=== PATIENT | female | born 1945 | race Caucasian/White ===

== ENCOUNTER 2019-07-16 13:26 | Outpatient (CLI) | payer MEDICARE, OTHER, SELFPAY ==
--- NOTE | 2019-07-16 13:30 | USCV_ITS ---
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
== END 2019-07-16 13:27 | disposition home or self-care (01) ==
LOC: RAD 13:35
PROVIDERS: Family Provider Physician Assistant Medical; PCP Physician Assistant Medical; Visit Provider Surgery Surgical Oncology
DX: I73.9 Peripheral vascular disease, unspecified (principal)
CPT/HCPCS: 93922

== ENCOUNTER 2020-07-06 16:09 | Inpatient (IN) | payer MEDICARE, OTHER, SELFPAY ==
--- NOTE | 2020-07-06 16:13 | XRR_ITS ---
PROCEDURE INFORMATION: Exam: XR Chest, 1 View Exam date and time: 07/06/2020 4:14 PM Age: 74 years old Clinical indication: Shortness of breath; Additional info: SOB TECHNIQUE: Imaging protocol: XR of the chest Views: 1 view. COMPARISON: CR Chest 1 view [id number] 04/24/2018 6:16 AM FINDINGS: Lungs: Parenchymal densities seen in the right upper lobe consistent with pneumonia. These findings are new since prior examination. Pleural spaces: Unremarkable. No pleural effusion. No pneumothorax. Heart/Mediastinum: Unremarkable. No cardiomegaly. Bones/joints: Unremarkable. XR/XR chest 1V portable [id number] IMPRESSION: Right upper lobe pneumonia.
--- NOTE | 2020-07-06 16:14 | W.ED.FALL ---
HPI - Fall General: Chief Complaint: Fall Stated Complaint: FALL OUT OF BED Time Seen by Provider: 07/06/20 16:10 Source: patient and EMS Mode of arrival: EMS Limitations: no limitations History of Present Illness: HPI Narrative: 74-year-old female states she fell out of bed today roughly 1 to 2 hours ago. She states she is just can of slipped out of bed and hit her back while she fell. She complains of back pain along with some neck pain. She denies any pain elsewhere. She states that over the last week she has had a slight cough as well. She had a history of pleural effusions and had to have it drained recently. She denies any fever. She is not hypoxic here. Associated symptoms-after fall: Reports neck pain; Denies abdominal pain, chest pain or headache(s) Review of Systems Const: Denies: fever(s), chills, body aches or change in appetite Eyes: Denies: blurry vision or eye discomfort ENMT: Denies: throat pain or dental pain Card: Denies: chest pain Resp: Reports: productive cough; Denies: dyspnea GI: Denies: abdominal pain, nausea, vomiting or diarrhea : Denies: dysuria Musc: Reports: neck pain and back pain Skin/Breast: Denies: rash Neuro: Denies: headache(s) Psych: Denies: depression Moe/Lymph: Denies: easy bruising All/Imm: Denies: urticaria PFS ED PFSH: Medical History (Updated 07/06/20 @ 17:12 by Tona Swift MD) Diastolic heart failure HTN (hypertension) Social History Smoking and tobacco status: never smoked Physical Exam Const: COMMON NORMALS: no acute distress, patient oriented x3 and healthy appearing HENMT: COMMON NORMALS: normocephalic and atraumatic HEAD & SCALP: normocephalic and atraumatic Eye: COMMON NORMALS: Equal, round and reactive pupils present and EOMs intact bilaterally PUPIL: Yes Equal, round and reactive pupils present Neck/C-Spine: COMMON NORMALS: supple OTHER: in c collar neck tenderness Chest: COMMONS NORMALS: normal inspection of the chest and normal palpation of entire chest wall Resp: COMMON NORMALS: normal respiratory effort, No retractions and No use of accessory muscles AUSCULTATION: rales on the right Cardio: COMMON NORMALS: regular rate, regular rhythm and No murmurs present (Cardio) RATE: regular rate RHYTHM: regular rhythm GI: COMMON NORMALS: Normal to inspection, nondistended, normoactive bowel sounds present, Soft to palpation, non-tender and no masses PALPATION: Yes Soft to palpation Back/Pelvis: OTHER: tenderness along spine with no sep off Extremity: COMMON NORMALS: normal to inspection and full ROM Neuro: COMMON NORMALS: patient oriented x3, moves all extremities and no focal motor deficits Psych: COMMON NORMALS: mental status grossly normal, Normal thought process present and cooperative THOUGHT PROCESS: Normal thought process present Skin: COMMON NORMALS: no rashes or lesions noted and no wounds GENERAL SKIN EXAM: no rashes or lesions noted Course Vital Signs: Vital signs: Vital Signs Temperature 99.8 F H 07/06/20 16:18 Pulse Rate 106 H 07/06/20 17:20 Respiratory Rate 23 H 07/06/20 17:20 Blood Pressure 105/45 07/06/20 17:20 Pulse Oximetry 94 07/06/20 17:20 MDM - Fall MDM Narrative: Medical decision making narrative: Karol presents here with a fall some back pain from her fall. And imaging of her back and neck are all normal. Patient's x-ray of her chest shows right upper lobe pneumonia. Patient does have a fever here and has some slight hypoxia. She has no signs of sepsis. I spoke to the hospitalist and will admit. Patient started on IV antibiotics in the ER. Lab Data: Labs: Lab Results 07/06/20 07/06/20 Range/Units 16:45 16:45 WBC 18.1 H (4.0-10.0) 10^3/ uL RBC 3.97 L (4.1-5.3) 10^6/u L Hgb 13.8 (11.5-15.3) g/dL Hct 40.2 (37.0-47.0) % MCV 101.3 H (81-99) fL MCH 34.8 H (28.0-34.0) pg MCHC 34.3 (30.0-36.0) g/dL RDW 15.6 H (12.1-15.1) % Plt Count 119 L (130-400) 10^3/c mm MPV 12.5 H (7.4-10.4) fL Neut % (Auto) 89.8 % Lymph % (Auto) 4.3 % [place] % (Auto) 4.7 % Eos % (Auto) 0.1 % Baso % (Auto) 0.3 % Neut # (Auto) 16.27 H (1.8-7.7) 10^3/u L Lymph # (Auto) 0.8 (0.8-4.8) 10^3/u L [place] # (Auto) 0.9 (0.2-0.9) 10^3/u L Eos # (Auto) 0.0 (0.0-0.8) 10^3/u L Baso # (Auto) 0.1 (0.0-0.1) 10^3/u L Nucleated RBC % (a uto) 0 % Nucleated RBCs # 0.0 /100WBC Sodium 132 L (136-145) mmol/L Potassium 2.6 L* (3.5-5.1) mmol/L Chloride 91 L (98-107) mmol/L Carbon Dioxide 28 (22-29) mmol/L Anion Gap 15.6 (5-19) BUN 17 (8-23) mg/dL Creatinine 1.0 H (0.5-0.9) mg/dL GFR Calculation Not Reportable Glucose 172 H (65-115) mg/dL Calculated Osmolal ity 280 L (285-295) mOsm/k g Calcium 8.9 (8.5-10.5) mg/dL Total Bilirubin 4.7 H (0.15-1.2) mg/dL AST 71 H (0-32) U/L ALT 22 (0-33) U/L Alkaline Phosphata se 204 H (35-105) IU/L Total Protein 9.4 H (6.6-8.7) g/dL Albumin 2.7 L (3.5-5.2) g/dL Globulin 6.7 H (1.3-4.6) g/dL Imaging Data^: CXR: Attestation: I personally reviewed and interpreted this imaging study as follows: My impression: Right upper lobe pneumonia CT Head: Attestation: I personally reviewed and interpreted this imaging study as follows: Radiologist's impression: [address] [place] [address] CT Scan Report Signed Patient: Karol Hickey Unit #: [id number] : 1945 Age/Sex: 74 / F ADM Date: 07/06/20 Loc: ER Room/Bed: Attending Dr: Ordering Provider/Ordering MD: Tona Swift MD Date of Service: 07/06/20 Procedure(s): CT head wo con* [id number] Accession Number(s): [id number] Report Number: [id number] PROCEDURE INFORMATION: Exam: CT Head Without Contrast Exam date and time: 07/06/2020 4:52 PM Age: 74 years old Clinical indication: Injury or trauma; Fall; Blunt trauma (contusions or hematomas); Without loss of consciousness; Patient HX: Fell out of bed C/O pain all over TECHNIQUE: Imaging protocol: Computed tomography of the head without contrast. Total images: 204 Radiation optimization: All CT scans at this facility use at least one of these dose optimization techniques: automated exposure control; mA and/or kV adjustment per patient size (includes targeted exams where dose is matched to clinical indication); or iterative reconstruction. COMPARISON: CT head wo con* [id number] 04/19/2018 5:52 PM RADIATION DOSE METRICS: Total DLP (mGy-cm): 884.94 FINDINGS: Brain: No evidence of active or acute intracranial pathologic process, hemorrhage, or trauma. Advanced small vessel ischemic disease with senile periventricular leukomalacia. No evidence for cerebral edema. No mass effect. No midline shift. Atrophic changes not inconsistent with the patient's chronological age. Cerebral ventricles: No ventriculomegaly. Bones/joints: Unremarkable. No acute fracture. Paranasal sinuses: Visualized sinuses are unremarkable. No fluid levels. Mastoid air cells: Visualized mastoid air cells are well aerated. Soft tissues: Unremarkable. CT/CT head wo con* [id number] IMPRESSION: No evidence of active or acute intracranial pathologic process, hemorrhage, or trauma. ct lumbar: Attestation: I personally reviewed and interpreted this imaging study as follows: Radiologist's impression: [facility] [place] [address] CT Scan Report Signed Patient: Karol Hickey Unit #: [id number] : 1945 Age/Sex: 74 / F ADM Date: 07/06/20 Loc: ER Room/Bed: Attending Dr: Ordering Provider/Ordering MD: Tona Swift MD Date of Service: 07/06/20 Procedure(s): CT lumbar spine wo con* [id number] Accession Number(s): [id number] Report Number: [id number] PROCEDURE INFORMATION: Exam: CT Lumbar Spine Without Contrast Exam date and time: 07/06/2020 4:52 PM Age: 74 years old Clinical indication: Injury or trauma; Fall; Blunt trauma (contusions or hematomas); Patient HX: Fell out of bed C/O pain all over TECHNIQUE: Imaging protocol: Computed tomography images of the lumbar spine without contrast. Radiation optimization: All CT scans at this facility use at least one of these dose optimization techniques: automated exposure control; mA and/or kV adjustment per patient size (includes targeted exams where dose is matched to clinical indication); or iterative reconstruction. COMPARISON: No relevant prior studies available. 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 Vertebrae: Moderate to severe multilevel spine degenerative changes including degenerative disc disease, spondylosis and facet degenerative changes. Discs/Spinal canal/Neural foramina: Multilevel severe central spinal stenosis. Liver: Prominent cirrhosis noted on CT thoracic spine today. Vasculature: Calcification of the abdominal aorta and/or iliac arteries consistent with atherosclerotic vessel disease. Soft tissues: Left total hip replacement with metallic artifact partially obscuring the pelvic anatomy. CT/CT lumbar spine wo con* [id number] IMPRESSION: 1. Prominent cirrhosis noted on CT thoracic spine today. 2. 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 3. Multilevel severe central spinal stenosis. 4.No acute spine findings. ct t spine: Radiologist's impression: [address] [address] [address] Scan Report Signed Patient: Karol Hickey Unit #: [id number] : 1945 Age/Sex: 74 / F ADM Date: 07/06/20 Loc: ER Room/Bed: Attending Dr: Ordering Provider/Ordering MD: Tona Swift MD Date of Service: 07/06/20 Procedure(s): CT thoracic spin wo con* [id number] Accession Number(s): [id number] Report Number: [id number] PROCEDURE INFORMATION: Exam: CT Thoracic Spine Without Contrast Exam date and time: 07/06/2020 4:52 PM Age: 74 years old Clinical indication: Injury or trauma; Fall; Blunt trauma (contusions or hematomas); Patient HX: Fell out of bed C/O pain all over TECHNIQUE: Imaging protocol: Computed tomography images of the thoracic spine without contrast. Radiation optimization: All CT scans at this facility use at least one of these dose optimization techniques: automated exposure control; mA and/or kV adjustment per patient size (includes targeted exams where dose is matched to clinical indication); or iterative reconstruction. COMPARISON: No relevant prior studies available. RADIATION DOSE METRICS: Total DLP (mGy-cm): 1748.88 FINDINGS: Vertebrae: Moderate thoracic spondylosis. Discs/Spinal canal/Neural foramina: No significant disc protrusion. No severe spinal canal stenosis. No significant neural foraminal narrowing. Soft tissues: Unremarkable. Lungs: Moderate to severe right upper lobe and right lower lobe pneumonia. Pleural spaces: Small right pleural fluid collection. Heart: Severe calcified coronary artery disease. Severe calcification in the mitral valve and/or mitral valve annulus. Mild aortic valve calcification. CT/CT thoracic spin wo con* [id number] IMPRESSION: 1. Moderate to severe right upper lobe and right lower lobe pneumonia. 2. No acute spine findings. ct c spine: Radiologist's impression: [address] [address] [address] Scan Report Signed Patient: Karol Hickey Unit #: [id number] : 1945 Age/Sex: 74 / F ADM Date: 07/06/20 Loc: ER Room/Bed: Attending Dr: Ordering Provider/Ordering MD: Tona Swift MD Date of Service: 07/06/20 Procedure(s): CT cervical spin wo con* [id number] Accession Number(s): [id number] Report Number: [id number] PROCEDURE INFORMATION: Exam: CT Cervical Spine Without Contrast Exam date and time: 07/06/2020 4:52 PM Age: 74 years old Clinical indication: Injury or trauma; Fall; Blunt trauma; Patient HX: Fell out of bed C/O pain all over TECHNIQUE: Imaging protocol: Computed tomography images of the cervical spine without contrast. Total images: 270 Radiation optimization: All CT scans at this facility use at least one of these dose optimization techniques: automated exposure control; mA and/or kV adjustment per patient size (includes targeted exams where dose is matched to clinical indication); or iterative reconstruction. COMPARISON: No relevant prior studies available. RADIATION DOSE METRICS: Total DLP (mGy-cm): 587.91 FINDINGS: Bones/joints: No acute fracture. Increase in the cervical lordosis. Osteopenia/osteoporosis. Degenerative disease with spondylosis deformans. Mild facet arthrosis. Degenerative disease of the joints of [place], left greater right C5/C6. Failure segmentation/hemivertebra C6/C7. Discs/Spinal canal/Neural foramina: Degenerative disc disease of moderate severity C5/C6. Central mild focal annular disc bulge C3/C4. Left paramedian to left lateral focal annular disc bulge osteophyte complex C5/C6 with left neural foraminal stenosis. Left neural foraminal stenosis C6/C7 Lungs: Lung apices are unremarkable for age. Soft tissues: Unremarkable for age. CT/CT cervical spin wo con* [id number] IMPRESSION: No acute findings. 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
[2020-07-06 16:18] VITALS: BP 135/69; PULSE 98; RESP 25; TEMP 37.7; O2SAT 91; BMI 29.0
[2020-07-06 17:08] LABS: Basophils # 0.1 10^3/uL (0.0-0.1); Basophils % 0.3 %; Eosinophils % 0.1 %; Hematocrit 40.2 % (37.0-47.0); Hemoglobin 13.8 g/dL (11.5-15.3); Lymphocytes # 0.8 10^3/uL (0.8-4.8); Lymphocytes % 4.3 %; Mean Corpuscular HGB Conc 34.3 g/dL (30.0-36.0); Mean Corpuscular Hemoglobin 34.8 pg (28.0-34.0); Mean Corpuscular Volume 101.3 fL (81-99); Mean Platelet Volume 12.5 fL (7.4-10.4); Monocytes # 0.9 10^3/uL (0.2-0.9); Monocytes % 4.7 %; Neutrophils # 16.27 10^3/uL (1.8-7.7); Neutrophils % 89.8 %; Nucleated Red Blood Cells % 0 %; Platelet Count 119 10^3/cmm (130-400); Red Blood Count 3.97 10^6/uL (4.1-5.3); Red Cell Distribution Width 15.6 % (12.1-15.1); White Blood Count 18.1 10^3/uL (4.0-10.0)
[2020-07-06 17:20] VITALS: BP 105/45; PULSE 106; RESP 23; O2SAT 94
[2020-07-06 17:25] LABS: Alanine Aminotransferase 22 U/L (0-33); Albumin Level 2.7 g/dL (3.5-5.2); Alkaline Phosphatase 204 IU/L (35-105); Anion Gap 15.6 (5-19); Aspartate Amino Transferase 71 U/L (0-32); Blood Urea Nitrogen 17 mg/dL (8-23); Calcium 8.9 mg/dL (8.5-10.5); Carbon Dioxide 28 mmol/L (22-29); Chloride 91 mmol/L (98-107); Globulin 6.7 g/dL (1.3-4.6); Glucose 172 mg/dL (65-115); Osmolality Calculated 280 mOsm/kg (285-295); Sodium 132 mmol/L (136-145); Total Bilirubin 4.7 mg/dL (0.15-1.2); Total Protein 9.4 g/dL (6.6-8.7)
[2020-07-06 17:42] LABS: Potassium 2.6 mmol/L (3.5-5.1)
--- NOTE | 2020-07-06 17:52 | PC.PHAR ---
pt states she takes her meds regularly. pt has pill bottles at bedside. pill bottles date back to 2019 and patient states she has not taken her meds today. Patient is also not taking Magnesium and B-12.
[2020-07-06] MEDS: sodium chloride 0.9% 1,000 ML 999 ML IV (18:09)
[2020-07-06] MEDS: acetaminophen 325 mg Tablet 650 MG PO (18:09)
--- NOTE | 2020-07-06 18:13 | PM.HP ---
Providers/Chief Complaint Primary Care Provider: Dmitry Hogan Chief Complaint: FALL OUT OF BED History of Present Illness Karol Hickey is a 74 year old female with past medical history of liver cirrhosis, congestive heart failure, hypertension who was brought by her family to emergency room because she fell out of bed earlier today. The fall was mechanical in nature. The patient denies any significant pain. Imaging studies were negative for any fractures or intracranial bleeding. However the patient was found to be hypoxic. She quickly improved with small amount of supplemental oxygen. Currently on 2 L. The patient also has fever. Chest x-ray and CT revealed right-sided pneumonia. The family reports that the patient has been coughing lately. They also report generalized weakness and tiredness, decreased appetite. No reported shortness of breath. No chest pain or palpitations. No nausea or vomiting. No diarrhea. About a week ago the patient underwent right-sided thoracentesis in [place]. About a liter of fluid was removed. They do not know the results of the tests yet. No history of cancer. They do not know the nature of liver cirrhosis. Review of Systems General: Reports: 10 or more systems reviewed and unremarkable except in HPI and below Medications/Allergies Home Medications Medication Instructions Recorded Confirmed Last Taken Type furosemide 40 mg tablet 40 mg PO DAILY PRN 10/31/19 07/06/20 Unknown History metformin 500 mg tablet,extended 500 mg PO DAILY tab 10/31/19 07/06/20 Unknown History release 24 hr nadolol 20 mg tablet 10 mg PO DAILY tab 10/31/19 07/06/20 Unknown History potassium chloride 20 mEq 20 meq PO DAILY 10/31/19 07/06/20 Unknown History tablet,extended release sulfasalazine 500 mg tablet 0.5 gm PO BID tab 10/31/19 07/06/20 Unknown History irbesartan 150 mg tablet 150 mg PO DAILY #90 tab 11/05/19 07/06/20 Unknown Rx Allergies Allergy/AdvReac Type Severity Reaction Status Date / Time No Known Allergies Allergy Unverified 10/31/19 10:43 PFSH Acute PFSH: Medical History (Updated 07/06/20 @ 17:12 by Tona Swift MD) Diastolic heart failure HTN (hypertension) Social History Smoking and tobacco status: never smoked Vitals/I&O/Wt Last Vital Signs Temp 99.8 F H 07/06/20 16:18 Pulse 106 H 07/06/20 17:20 Resp 23 H 07/06/20 17:20 BP 105/45 07/06/20 17:20 Pulse Ox 94 07/06/20 17:20 Weight last 48 hrs Weight 83.915 kg Physical Exam Narrative: EXAM NARRATIVE: The patient is hard of hearing. No acute distress but appears very weak and tired. Skin is warm and dry. Dry mucous membranes Neck supple. No JVD Lungs right-sided crackles are prominent. No wheezes. No respiratory distress with supplemental oxygen at rest. Heart S1, S2, regular Abdomen soft, distended, nontender, bowel sounds are present. Extremities. Trace edema. No cyanosis or calf tenderness bilaterally Neuro exam. Nonfocal. Generalized muscle weakness is present. Eyes PERRL, extraocular muscles are intact. No dysarthria. Data : 07/06/20 16:45 07/06/20 16:45 Other Labs: Laboratory Results WBC 18.1 10^3/uL (4.0-10.0) H 07/06/20 16:45 RBC 3.97 10^6/uL (4.1-5.3) L 07/06/20 16:45 Hgb 13.8 g/dL (11.5-15.3) 07/06/20 16:45 Hct 40.2 % (37.0-47.0) 07/06/20 16:45 MCV 101.3 fL (81-99) H 07/06/20 16:45 MCH 34.8 pg (28.0-34.0) H 07/06/20 16:45 MCHC 34.3 g/dL (30.0-36.0) 07/06/20 16:45 RDW 15.6 % (12.1-15.1) H 07/06/20 16:45 Plt Count 119 10^3/cmm (130-400) L 07/06/20 16:45 MPV 12.5 fL (7.4-10.4) H 07/06/20 16:45 Neut % (Auto) 89.8 % 07/06/20 16:45 Lymph % (Auto) 4.3 % 07/06/20 16:45 [place] % (Auto) 4.7 % 07/06/20 16:45 Eos % (Auto) 0.1 % 07/06/20 16:45 Baso % (Auto) 0.3 % 07/06/20 16:45 Neut # (Auto) 16.27 10^3/uL (1.8-7.7) H 07/06/20 16:45 Lymph # (Auto) 0.8 10^3/uL (0.8-4.8) 07/06/20 16:45 [place] # (Auto) 0.9 10^3/uL (0.2-0.9) 07/06/20 16:45 Eos # (Auto) 0.0 10^3/uL (0.0-0.8) 07/06/20 16:45 Baso # (Auto) 0.1 10^3/uL (0.0-0.1) 07/06/20 16:45 Nucleated RBC % (auto) 0 % 07/06/20 16:45 Nucleated RBCs # 0.0 /100WBC 07/06/20 16:45 Sodium 132 mmol/L (136-145) L 07/06/20 16:45 Potassium 2.6 mmol/L (3.5-5.1) L* 07/06/20 16:45 Chloride 91 mmol/L (98-107) L 07/06/20 16:45 Carbon Dioxide 28 mmol/L (22-29) 07/06/20 16:45 Anion Gap 15.6 (5-19) 07/06/20 16:45 BUN 17 mg/dL (8-23) 07/06/20 16:45 Creatinine 1.0 mg/dL (0.5-0.9) H 07/06/20 16:45 GFR Calculation Not Reportable 07/06/20 16:45 Glucose 172 mg/dL (65-115) H 07/06/20 16:45 Calculated Osmolality 280 mOsm/kg (285-295) L 07/06/20 16:45 Calcium 8.9 mg/dL (8.5-10.5) 07/06/20 16:45 Total Bilirubin 4.7 mg/dL (0.15-1.2) H 07/06/20 16:45 AST 71 U/L (0-32) H 07/06/20 16:45 ALT 22 U/L (0-33) 07/06/20 16:45 Alkaline Phosphatase 204 IU/L (35-105) H 07/06/20 16:45 Total Protein 9.4 g/dL (6.6-8.7) H 07/06/20 16:45 Albumin 2.7 g/dL (3.5-5.2) L 07/06/20 16:45 Globulin 6.7 g/dL (1.3-4.6) H 07/06/20 16:[address] 07/06/20 16:13 IMPRESSION: No acute findings. Radiation Dose CTDIVOL = (mGy): DLP = 587.91 (mGy-cm) Chest X-Ray 07/06/20 16:13 IMPRESSION: Right upper lobe pneumonia. Head CT 07/06/20 16:13 IMPRESSION: No evidence of active or acute intracranial pathologic process, hemorrhage, or trauma. Radiation Dose CTDIVOL = (mGy): DLP = 884.94 (mGy-cm) Lumbar Spine CT 07/06/20 16:13 IMPRESSION: 1. Prominent cirrhosis noted on CT thoracic spine today. 2. 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 3. Multilevel severe central spinal stenosis. 4.No acute spine findings. Radiation Dose CTDIVOL = (mGy): DLP = 1717.6 (mGy-cm) Thoracic Spine CT 07/06/20 16:13 IMPRESSION: 1. Moderate to severe right upper lobe and right lower lobe pneumonia. 2. No acute spine findings. Radiation Dose CTDIVOL = (mGy): DLP = 1748.88 (mGy-cm) Micro: Microbiology 07/06/20 17:45 Blood Culture - Preliminary Blood SPECIMEN COLLECTED A&P Additional A&P Information 74-year-old female with past medical history of cirrhosis, CHF diastolic, hypertension, pleural effusion which was drained a week ago in [place] brought to emergency room after mechanical fall from her bed. She is found to have right-sided upper and lower lobe pneumonia. Severe sepsis and probably septic shock. When I entered the room her blood pressure was at mid 80s. The nursing staff is checking her vital signs again. Today suspect that the blood pressure device was connected incorrectly. In any case they will recheck and report. If the blood pressure is low again the patient will go to ICU. I am ordering lactic acid level and 1 L bolus of LR. We might need to use pressors if blood pressure remains low. I would be careful with IV fluids due to history of CHF. Acute hypoxic respiratory failure secondary to pneumonia. Improved with supplemental oxygen. We will continue oxygen and close monitoring. Right-sided pneumonia. Started on Rocephin which we will continue. We will add doxycycline. Blood cultures and sputum culture. MRSA screen. Will check procalcitonin level. Will adjust antibiotics depending on progress and culture results. Evidence of dehydration probably due to decreased oral intake. Associated mild acute kidney injury. She is also on furosemide at home. We will hold her blood pressure medications and furosemide. We will hydrate her gently. We will monitor for fluid overload. Hypokalemia. Will replace and recheck in the morning. I will also check her magnesium level. Recent pleural effusion. We will request her records from [place]. If there is worsening hypoxia we will repeat her chest x-ray. We might not need CT if it was done recently in [place]. Elevated total protein. We will recheck her CMP in couple of days. Additional testing might be necessary if persists. DVT prophylaxis. Lovenox. Diabetes. Insulin sliding scale. CODE STATUS. She wants to be full code. The plan of care was discussed with the patient and her family. They verbalized understanding and agreement Attestations Medical Necessity Statement*: The patient is being admitted to hospital with above listed problems some of them very severe requiring close monitoring in hospital settings, need for IV fluids and IV antibiotics. 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
[2020-07-06 18:21] VITALS: BP 109/49; PULSE 103; RESP 29; O2SAT 92
[2020-07-06 18:36] LABS: Magnesium 1.4 mg/dL (1.7-2.3)
[2020-07-06 18:40] LABS: Lactate (Lactic Acid level) 3.3 mmol/L (0.5-2.2)
[2020-07-06] MEDS: cefTRIAXone 1,000 MG in sodium chloride 0.9% (plus) 50 ML 100 MG IV (18:43)
[2020-07-06] MEDS: azithromycin 500 MG in sodium chloride 0.9% 250 ML 250 MG IV (19:07)
[2020-07-06] MEDS: potassium chloride ER 20 mEq Tablet 40 MEQ PO (19:09)
[2020-07-06 20:00] VITALS: BP 91/51; PULSE 72; RESP 19; TEMP 36.8; O2SAT 98
[2020-07-06 20:33] LABS: Procalcitonin 0.67 ng/mL (0-0.5)
[2020-07-06] MEDS: lactated ringers 1,000 ML 250 ML IV (20:40)
[2020-07-06] MEDS: sodium chlor 0.9% + KCl 20 mEq 20 MEQ/1,000 ML BAG 50 MEQ IV (20:42)
[2020-07-06] MEDS: enoxaparin 40 mg/0.4 mL Syringe SUBCUT (20:45)
[2020-07-06] MEDS: famotidine 20 mg/2 mL INJ IVP (20:45)
[2020-07-06 20:50] LABS: Glucose Point of Care 225 mg/dL (70-110)
[2020-07-07] VITALS (9 sets, daily range): BP systolic 94–123; BP diastolic 54–67; PULSE 65–77; RESP 17–20; TEMP 36.6–37.3; O2SAT 95–100
[2020-07-07 05:18] LABS: Basophils % 0.3 %; Eosinophils % 0.1 %; Hemoglobin 10.8 g/dL (11.5-15.3); Lymphocytes # 1.4 10^3/uL (0.8-4.8); Lymphocytes % 9.3 %; Mean Corpuscular HGB Conc 32.7 g/dL (30.0-36.0); Mean Corpuscular Hemoglobin 33.9 pg (28.0-34.0); Mean Corpuscular Volume 103.4 fL (81-99); Mean Platelet Volume 12.2 fL (7.4-10.4); Monocytes # 0.9 10^3/uL (0.2-0.9); Monocytes % 5.9 %; Neutrophils # 12.26 10^3/uL (1.8-7.7); Neutrophils % 83.5 %; Nucleated Red Blood Cells % 0 %; Platelet Count 69 10^3/cmm (130-400); Red Blood Count 3.19 10^6/uL (4.1-5.3); Red Cell Distribution Width 15.6 % (12.1-15.1); White Blood Count 14.7 10^3/uL (4.0-10.0)
[2020-07-07 05:31] LABS: Estmated Average Glucose 85; Hemoglobin A1C 4.6 % (4.0-6.0)
[2020-07-07] MEDS: famotidine 20 mg/2 mL INJ IVP (05:31)
[2020-07-07 05:41] LABS: NT Pro B Type Natriuretic Pept 942 pg/mL (0-450); Procalcitonin 4.64 ng/mL (0-0.5)
[2020-07-07 05:52] LABS: Anion Gap 10.3 (5-19); Blood Urea Nitrogen 23 mg/dL (8-23); Calcium 7.8 mg/dL (8.5-10.5); Carbon Dioxide 29 mmol/L (22-29); Chloride 99 mmol/L (98-107); Glucose 120 mg/dL (65-115); Magnesium 1.4 mg/dL (1.7-2.3); Osmolality Calculated 285 mOsm/kg (285-295); Phosphorus 2.8 mg/dL (2.5-4.5); Potassium 3.3 mmol/L (3.5-5.1); Sodium 135 mmol/L (136-145)
[2020-07-07 06:00] LABS: Add Urine Microscopic? YES; Bilirubin Urine 2+ (Negative); Blood Urine 2+ (Negative); Glucose Urine UA Norm (Normal); Ketones Urine 1+ (Negative); Leukocyte Esterase Urine 1+ (Negative); Nitrate Urine Negative (Negative); Protein Urine 1+ (Negative); Specific Gravity, Urine 1.025 (1.005-1.030); Urine Appearance SL Hazy (CLEAR); Urine Color Dark Yellow (Yellow); Urobilinogen Urine 4 mg/dL (Negative); pH Urine 5 (5-7)
[2020-07-07 06:01] LABS: Add Urine Culture? No; Bacteria Urine 1+ /hpf; Fine Granular Casts Urine 0-4 /lpf; RBC Urine 0-4 /hpf (0-2); WBC Urine 0-4 /hpf (0-5)
--- NOTE | 2020-07-07 06:24 | PC.NURSE ---
pt unable to void through the night, bladder scan showed appx. 250 ml this morning after which pt was able to void small amount of dark concentrated urine in a specimen cup, notified Dr Escamilla of low output, no new orders at this time
[2020-07-07 06:30] LABS: Glucose Point of Care 115 mg/dL (70-110)
[2020-07-07] MEDS: cefTRIAXone 1,000 MG in sodium chloride 0.9% (plus) 50 ML 100 MG IV (08:25)
[2020-07-07] MEDS: doxycycline 100 mg Tablet PO (08:25)
--- NOTE | 2020-07-07 09:43 | PC.CHAP ---
Pastoral Care Encounter/Spiritual Assessment Type of Contact [] Declined engineer chief visit [] Patient/Family/Request visit [] Outpatient visit [] Follow-up visit [] Physician referral [] Code/Alert [x] Routine visit [] Staff referral [] Actively dying [] Patient sleeping [] Family support [] [] Out of room [] Palliative care [] [] Receiving care in room [] Pre-surgical visit [] Trauma [] Long length of stay [] ICU visit [] Other: Relational/Emotional Strength [x] Patient feels connected with others/family/visitors/staff [] Distress [] Loneliness/isolation [] Abandonment Spirituality of Patient []x Person of Tiffany [] Attends Advent of their Tiffany [] Believes in Prayer [] Reads Bible or Latter Day materials [] There are Spiritual issues to be addressed Core Drilling Supervisor Interventions [x] Prayer [x] Active listening [] Non-anxious presence [] Spiritual/emotional support [] Crisis/trauma care [] Spiritual counseling [] Bereavement support [] Provided bereavement packet [] Provided Bible/devotional materials [] Provided toy/stuffed animal, coloring book to patient or family member [] Provided Communion [] Anointing/Edmond [] Salvation [x] Completed spiritual assessment [] Other: Impact on Illness or Injury [] Angry [] Fearful [] Anxious [] Often cries [] Exhaustion [] Unable to work [x] Unable to attend baptism [] Unable to walk/stand [] Unable to read [] Unable to drive [] Unable to eat/drink [] Unable to sleep [] Unable to be with family [] Patient intubated [] Other: Summary Time spent with patient 15 min
[2020-07-07] MEDS: lidocaine 1% 5 ML in potassium chloride premix 100 ML 25 ML IV (10:50)
[2020-07-07] MEDS: magnesium sulfate premix 4 GM/100 ML PREMIX IV (10:51)
--- NOTE | 2020-07-07 11:06 | CT_ITS ---
WS: [id number] CTA OF THE CHEST WITH PULMONARY EMBOLISM PROTOCOL TECHNIQUE: High-resolution contrast enhanced CTA of the chest with coronal and sagittal reformatted i mages with pulmonary embolism protocol. MIP images are also reviewed. CLINICAL INFORMATION: sob COMPARISON: CTA chest April 21, 2018 DLP: 527.[address] scans at [facility] use at least one of these dose optimization techniques: automat ed exposure control; mA and/or kV adjustment per patient size (includes targeted exams where dose is matched to clinical indication); or iterative reconstruction. FINDINGS: Proximal main pulmonary arteries are patent. Prominent central main pulmonary arteries can be seen wi th pulmonary hypertension. Small filling defect in the right lower lobe consistent pulmonary embolus. Remaining arteries appear patent. Small right pleural effusion with compressive atelectasis in right lung base. Hazy groundglass infilt rates in right upper lobe. Air bronchograms with bronchiectasis right upper lobe along the fissure. L eft lung is well aerated. Trace left pleural fluid. No mediastinal or hilar lymphadenopathy. No axill mesfin lymphadenopathy. Partially visualized cirrhotic liver with cholelithiasis. Varices in the upper abdomen partially visu alized. 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 CT/CT angio chest PE protcl [id number] IMPRESSION: 1. Small filling defect in the right lower lobe consistent with pulmonary embo minerva. 2. Proximal main pulmonary arteries are patent and enlarged. This can be seen with pulmonary arterial hypertension. 3. Small right pleural effusion with compressive atelectasis right lung base. 4. Hazy groundglass infiltrates in right upper lobe with subtotal consolidatio n along the fissure consistent with pneumonia. 5. Bronchiectasis right upper lobe. Notified Bishnu Nuñez MD at 07/07/2020 12:34 PM.
--- NOTE | 2020-07-07 11:06 | USCV_ITS ---
EdelmiraKarol Age: 74 Gender: F : 1945 Exam Date: 07/07/2020 15:14 Ordering Phys: Bishnu Nuñez MD Technologist: Karol Jacob [place] [facility] [place]: CHF BP: / HR: 74 Rhythm: Sinus Technical Quality: Technically difficult study MEASUREMENTS (Male / Female) Normal Values 2D ECHO LV Diastolic Diameter PLAX 3.1 cm 4.2 - 5.9 / 3.9 - 5.3 cm LV Systolic Diameter PLAX 1.7 cm LV Chamber Size 4.2 cm IVS Diastolic Thickness 1.2 cm 0.6 - 1.0 / 0.6 - 0.9 cm IVS Systolic Thickness 0.0 cm LVPW Diastolic Thickness 1.5 cm 0.6 - 1.0 / 0.6 - 0.9 cm LVPW Systolic Thickness 1.8 cm RV Chamber Size 2.7 cm LVOT Diameter 2.0 cm LV Ejection Fraction 2D Teich 76.6 % LV Ejection Fraction MOD 2C 78.2 % LV Ejection Fraction 2C AL 79.0 % LA Diameter 3.7 cm LA Width 4.0 cm LA Height 5.9 cm RA Width 3.5 cm RA Height 4.0 cm M-MODE LV Diastolic Diameter MM 4.6 cm 4.2 - 5.9 / 3.9 - 5.3 cm LV Systolic Diameter MM 2.2 cm LV Ejection Fraction MM Teich 84.2 % IVS Diastolic Thickness MM 1.9 cm 0.6 - 1.0 / 0.6 - 0.9 cm IVS Systolic Thickness MM 3.4 cm LVPW Diastolic Thickness MM 1.5 cm 0.6 - 1.0 / 0.6 - 0.9 cm LVPW Systolic Thickness MM 1.6 cm Aortic Annulus Diameter 4.1 cm LA Ao Ratio MM 1.0 MV E Point Septal Separation 0.1 cm DOPPLER AV Peak Velocity 319.3 cm/s LVOT Peak Velocity 146.0 cm/s AV Area Cont Eq vti 1.4 cm squared AV Area Cont Eq pk 1.4 cm squared MV Area PHT 2.0 cm squared Mitral E to A Ratio 1.3 MV E' Velocity 120.5 cm/s Mitral E to MV E' Ratio 26.2 Mitral E to LV E' Lateral Ratio 22.6 Mitral E to LV E' Septal Ratio 31.6 TR Peak Velocity 184.0 cm/s TR Peak Gradient 13.5 mmHg TV Peak E Velocity 68.0 cm/s PV Peak Velocity 47.0 cm/s RV Acceleration Time 0.1 s RV Ejection Time 0.3 s RV AcT/ET 0.3 FINDINGS Left Ventricle Normal left ventricular size. LV is hyperdynamic with LVEF of > 65%. No regional wall motion abnormalities. Normal diastolic filling pattern. Right Ventricle Grossly normal Right Atrium The right atrium is normal in size. Left Atrium The left atrium is mildly dilated Mitral Valve Severe mitral annular calcification. Chordal calcification noted. There is mild to moderate mitral stenosis with MV area of 1.9cm2 by pressure half time and gradient across the valve of 7.2mmHg. There is mild mitral regurgitation. Aortic Valve Thickened and calcified aortic valve. There is moderate aortic stenosis. By continuity equation, BRENNA is 1.28cm2 and mean gradient across the aortic valve is 24mmHg There is no aortic regurgitation. Tricuspid Valve Structurally normal tricuspid valve without significant stenosis or regurgitation. Insufficient TR jet to calculate RVSP Pulmonic Valve Grossly normal Pericardium Normal pericardium without effusion. Aorta Normal ascending aorta dimension. CONCLUSIONS LV is hyperdynamic with EF of >65% Normal diastolic function There is severe mitral annular calcification. There is mild to moderate mitral stenosis with MV area of 1.9cm2 and gradient across the mitral valve of 7.2mmHg. There is mild mitral regurgitation Moderate aortic stenosis is noted Compared to prior echocardiogram from 04/19/2018, patient has mild to moderate mitral stenosis and moderate aortic stenosis. Alban Hughes MD (Electronically Signed) Final Date: 07 July 2020 20:14 S
--- NOTE | 2020-07-07 11:06 | CT_ITS ---
WS: [id number] CT ABDOMEN PELVIS TECHNIQUE: Noncontrast CT of the abdomen and pelvis with coronal and sagittal reformatted images. CLINICAL INFORMATION: liver crihosis COMPARISON: MRCP 3 [id number] DLP: 1059.[address] scans at [facility] use at least one of these dose optimization techniques: automat ed exposure control; mA and/or kV adjustment per patient size (includes targeted exams where dose is matched to clinical indication); or iterative reconstruction. FINDINGS: Hepatic cirrhosis. Cholelithiasis. Extensive varices in the upper abdomen including gastrohepatic and gastrosplenic varices. Small right pleural effusion with compressive atelectasis right lower lobe. T race left pleural fluid. Coronary calcification. No hydronephrosis in either kidney. Adrenal glands are normal. Normal GE junction. Small amount of fr ee fluid in the pelvis. Left SORAYA degrades images in the pelvis. Pelvic phleboliths. Diverticulosis. N o evidence of acute diverticulitis. No small or large bowel obstruction. Normal appendix. Tiny fat-co ntaining umbilical hernia. Normal caliber abdominal aorta. CT/CT abdomen pelvis wo con [id number] IMPRESSION: 1. Hepatic cirrhosis with varices in the upper abdomen. 2. Extensive cholelithiasis 3. Normal caliber abdominal aorta. 4. Small amount of free fluid in the pelvis. 5. Sigmoid diverticulosis. No evidence of acute diverticulitis. Some images in the pelvis are degraded due to left SORAYA. 6. No hydronephrosis in either kidney. 7. Small right pleural effusion with compressive atelectasis right lower lobe. 8. Prior hysterectomy. Notified Bishnu Nuñez MD at 07/07/2020 12:40 PM.
[2020-07-07 11:28] LABS: C Reactive Protein 39.8 mg/L (0.0-4.9)
[2020-07-07 11:36] LABS: Glucose Point of Care 198 mg/dL (70-110)
[2020-07-07] MEDS: iodixanol 320 mg/mL 100mL Btl IV (12:10)
[2020-07-07 12:11] LABS: Lactate (Lactic Acid level) 2.5 mmol/L (0.5-2.2)
[2020-07-07] MEDS: pantoprazole DR 40 mg Tablet PO ×2 (13:16→18:13)
[2020-07-07] MEDS: azithromycin 500 MG in sodium chloride 0.9% 250 ML 250 MG IV (15:21)
--- NOTE | 2020-07-07 16:34 | PC.NURSE ---
daughter at bedside requesting to know information. explained what i could from nursing standpoint. sent message to DR. leyva to contact either daughter or son to explain information to them. relayed info to daughter
[2020-07-07 16:50] LABS: Glucose Point of Care 230 mg/dL (70-110)
[2020-07-07 17:07] LABS: Partial Thromboplastin Time 48.8 SECONDS (23.9-36.7)
[2020-07-07] MEDS: heparin drip 25,000 UNIT/500 ML PREMIX 23.5 UNIT IV (17:10)
--- NOTE | 2020-07-07 17:11 | USCV_ITS ---
Karol Hickey Age: 74 Gender: F : 1945 Exam Date: 07/07/2020 17:30 Ordering Phys: Bishnu Nuñez MD Technologist: Nay Ho [place] [facility] [place]: BLE PAIN HISTORY: Lower extremity pain. PROCEDURES: Venous duplex imaging was performed in bilateral lower extremities. The following venous structures were evaluated: common femoral vein, profunda vein, proximal portion of the greater saphenous vein, superficial femoral vein, and the popliteal vein. In addition, the posterior tibial veins were evaluated. Serial compression, augmentation maneuvers, and spectral Doppler flow evaluation were performed. FINDINGS: No evidence of DVT seen in any vessel visualized at this time. CONCLUSIONS No evidence of right lower extremity DVT. No evidence of left lower extremity DVT. Guille Moyer MD (Electronically Signed) Final Date: 08 July 2020 09:50 S
--- NOTE | 2020-07-07 17:15 | P.PN_ITS ---
Subjective Subjective: Interval history: This morning patient was examined, she sitting up in bed, she is on 2 L nasal cannula, she does not have any significant complaints, no complaints of fevers, no cough, no chest pain, no palpitations, no shortness of breath, she has been staying for the last few weeks she has been feeling more weak, a bit more lightheaded, no calf pain, no calf swelling, no recent travel, known exposure to COVID-19, no known history of strokes, no no history of heart failure, no history of CAD, she does tell me that she was in [place] to see her primary care provider, she had a right pleural effusion that was drained, she tells me that has been drained 3 times in the past year or so, she does not know why she has the right pleural effusion, but roughly a liter was taken off Vitals/I&O/Wt Last Vital Signs Temp 98.6 F 07/07/20 15:09 Pulse 73 07/07/20 15:09 Resp 18 07/07/20 15:09 BP 106/59 07/07/20 15:09 Pulse Ox 96 07/07/20 15:09 07/07/20 07/07/20 07/07/20 06:59 14:59 22:59 Intake Total 1520 / 4165 360 / 360 Balance 1520 / 4165 360 / 360 Weight last 48 hrs Weight 83.915 kg Physical Exam Const: COMMON NORMALS: no acute distress and patient oriented x3 HENMT: COMMON NORMALS: normocephalic HEAD & SCALP: normocephalic Neck/C-Spine: COMMON NORMALS: no JVD Resp: COMMON NORMALS: normal respiratory effort, No retractions, No use of accessory muscles and clear to auscultation bilaterally AUSCULTATION: clear to auscultation bilaterally Cardio: COMMON NORMALS: no JVD, regular rate, regular rhythm, S1 normal heart sound present and S2 normal heart sound present RATE: regular rate RHYTHM: regular rhythm HEART SOUNDS: S1 normal heart sound present and S2 normal heart sound present GI: COMMON NORMALS: Normal to inspection, nondistended, normoactive bowel sounds present, Soft to palpation, non-tender, No hepatosplenomegaly present, no masses and no bruits PALPATION: Yes Soft to palpation and Yes No hepatosplenomegaly present Extremity: COMMON NORMALS: capillary refill normal, no clubbing, cyanosis or edema, no calf tenderness and no pedal edema Neuro: COMMON NORMALS: patient oriented x3 Psych: COMMON NORMALS: mental status grossly normal Data : 07/07/20 05:00 07/07/20 05:00 Micro: Microbiology 07/06/20 17:45 Blood Culture - Preliminary Blood 07/07/20 05:30 MRSA Culture - Final Nose 07/07/20 05:45 Legionella Urinary Antigen - Final Urine,Clean Catch 07/06/20 18:28 Blood Culture - Preliminary Blood SPECIMEN COLLECTED A&P Assessment and plan (1) Acute respiratory failure with hypoxia: -Likely secondary to right-sided pneumonia -Patient's pulmonary emboli, is a small filling defect in the right lower lobe, I I am not convinced that it is playing a significant role Plan: -Continue broad-spectrum antibiotic therapy vancomycin, Rocephin, azithromycin -I will hold off on starting her on anticoagulation, given her liver cirrhosis, chronic thrombocytopenia, gastric varices, concern for significant bleeding -Monitor respiratory status closely -Sputum cultures, blood cultures, urine bacterial antigens Status: Acute (2) Pulmonary emboli: -CT angiogram of the chest shows a small filling defect in the right lower lobe consistent with pulmonary embolism -Hold off on anticoagulation as I am not convinced that it is playing a significant role -She actually denies any shortness of breath or chest pain, but is on 2 L -Holding off on anticoagulation as she is thrombocytopenia, anemia, has gastric varices, liver cirrhosis, check INR, D-dimer, bilateral extremity ultrasounds Status: Acute (3) Pneumonia: Continue vancomycin, Rocephin, azithromycin Follow blood cultures, urine bacterial antigens, MRSA nares Status: Acute Qualifiers: Laterality: right Lung location: upper lobe of lung Pneumonia type: due to unspecified organism Qualified Code(s): J18.9 - Pneumonia, unspecified organism (4) Fall: PT OT Status: Acute Qualifiers: Encounter type: initial encounter Qualified Code(s): W19.XXXA - Unspecified fall, initial encounter (5) Diastolic heart failure: Does not clinically look fluid overloaded, has a right pleural effusion previously drained, currently has a minimal right pleural effusion Hold off on any further Lasix We will repeat echocardiogram Status: Acute Qualifiers: Heart failure chronicity: chronic Qualified Code(s): I50.32 - Chronic diastolic (congestive) heart failure (6) HTN (hypertension): Status: Acute (7) Liver cirrhosis: -Secondary to hepatitis C -CT scan of the abdomen shows hepatic cirrhosis with varices Status: Acute Additional A&P Information Elevated total protein. We will recheck her CMP in couple of days. Additional testing might be necessary if persists. DVT prophylaxis. SCDs, anticoagulation contraindicated given liver cirrhosis, thrombocytopenia, gastric varices, high risk of bleeding Diabetes. Insulin sliding scale. CODE STATUS. She wants to be full code. The plan of care was discussed with the patient and her family. They verbalized understanding and agreement Attestations Medical Necessity Statement*: Patient requires hospitalization for acute respiratory failure secondary pneumonia, right pulmonary emboli, liver cirrhosis, fall Coding Level of Care Code Acute Director Human Services for [facility] Diagnoses Acute respiratory failure with hypoxia J96.01 Pulmonary emboli I26.99 Pneumonia J18.9 Laterality: right Lung location: upper lobe of lung Pneumonia type: due to unspecified organism Fall W19.XXXA Encounter type: initial encounter Diastolic heart failure I50.32 Heart failure chronicity: chronic HTN (hypertension) I10 Liver cirrhosis K74.60
[2020-07-07 17:38] LABS: INR 1.77 (0.8-1.2)
[2020-07-07 17:40] LABS: D Dimer 3.19 ug/mIFEU (0-0.59)
[2020-07-07] MEDS: sucralfate 1 gm Tablet PO ×2 (18:13→21:58)
[2020-07-07] MEDS: FUROsemide 10 mg/mL SDV 2mL 20 MG IVP (18:14)
[2020-07-07] MEDS: vancomycin 1,000 MG in sodium chloride 0.9% 250 ML 250 MG IV (18:14)
[2020-07-07 20:46] LABS: Glucose Point of Care 241 mg/dL (70-110)
--- NOTE | 2020-07-07 20:47 | PC.NURSE ---
Patient voided and missed hat.
[2020-07-07 23:30] LABS: Partial Thromboplastin Time 49.5 SECONDS (23.9-36.7)
[2020-07-08] VITALS (8 sets, daily range): BP systolic 107–138; BP diastolic 52–70; PULSE 68–91; RESP 17–18; TEMP 36.4–37.1; O2SAT 95–98
[2020-07-08 06:11] LABS: Basophils % 0.3 %; Eosinophils # 0.1 10^3/uL (0.0-0.8); Eosinophils % 0.8 %; Hematocrit 29.7 % (37.0-47.0); Hemoglobin 10.6 g/dL (11.5-15.3); Lymphocytes # 1.1 10^3/uL (0.8-4.8); Lymphocytes % 12.4 %; Mean Corpuscular HGB Conc 35.7 g/dL (30.0-36.0); Mean Corpuscular Hemoglobin 37.1 pg (28.0-34.0); Mean Corpuscular Volume 103.8 fL (81-99); Mean Platelet Volume 12.2 fL (7.4-10.4); Monocytes # 0.7 10^3/uL (0.2-0.9); Monocytes % 7.6 %; Neutrophils # 6.83 10^3/uL (1.8-7.7); Neutrophils % 78.3 %; Nucleated Red Blood Cells % 0 %; Platelet Count 65 10^3/cmm (130-400); Red Blood Count 2.86 10^6/uL (4.1-5.3); Red Cell Distribution Width 15.1 % (12.1-15.1); White Blood Count 8.7 10^3/uL (4.0-10.0)
[2020-07-08 06:37] LABS: Magnesium 1.9 mg/dL (1.7-2.3); Phosphorus 2.3 mg/dL (2.5-4.5)
[2020-07-08 06:38] LABS: Alanine Aminotransferase 19 U/L (0-33); Alkaline Phosphatase 182 IU/L (35-105); Aspartate Amino Transferase 41 U/L (0-32); Blood Urea Nitrogen 19 mg/dL (8-23); Calcium 7.7 mg/dL (8.5-10.5); Carbon Dioxide 29 mmol/L (22-29); Chloride 100 mmol/L (98-107); Globulin 5.2 g/dL (1.3-4.6); Glucose 108 mg/dL (65-115); Osmolality Calculated 279 mOsm/kg (285-295); Sodium 133 mmol/L (136-145); Total Bilirubin 2.1 mg/dL (0.15-1.2); Total Protein 7.2 g/dL (6.6-8.7)
[2020-07-08 06:42] LABS: Glucose Point of Care 129 mg/dL (70-110)
[2020-07-08] MEDS: sucralfate 1 gm Tablet PO ×4 (06:48→22:29)
[2020-07-08] MEDS: pantoprazole DR 40 mg Tablet PO ×2 (09:20→17:59)
[2020-07-08] MEDS: cefTRIAXone 1,000 MG in sodium chloride 0.9% (plus) 50 ML 100 MG IV (09:33)
[2020-07-08] MEDS: phosphorus 250 mg Tablet PO ×2 (10:46→17:59)
[2020-07-08] MEDS: spironolactone 25 mg Tablet 100 MG PO (10:46)
[2020-07-08] MEDS: FUROsemide 40 mg Tablet PO (10:46)
[2020-07-08 10:55] LABS: Ammonia 30 umol/L (11-51)
[2020-07-08 11:18] LABS: INR 1.62 (0.8-1.2)
[2020-07-08 11:56] LABS: Glucose Point of Care 232 mg/dL (70-110)
--- NOTE | 2020-07-08 15:42 | P.PN_ITS ---
Subjective Subjective: Interval history: This morning patient was examined, she sitting up in bed, she does not require any oxygen, denies chest pain, no shortness of breath, no lightheadedness, no dizziness, no bloody black stools, no hematemesis, Vitals/I&O/Wt Last Vital Signs Temp 98.0 F 07/08/20 15:12 Pulse 91 07/08/20 15:12 Resp 18 07/08/20 15:12 BP 108/69 07/08/20 15:12 Pulse Ox 95 07/08/20 15:12 07/08/20 07/08/20 07/08/20 06:59 14:59 22:59 Intake Total 1205 / 2330 530 / 530 Output Total 400 / 700 Balance 805 / 1630 530 / 530 Weight last 48 hrs Weight 83.915 kg Physical Exam Const: COMMON NORMALS: no acute distress and patient oriented x3 HENMT: COMMON NORMALS: normocephalic HEAD & SCALP: normocephalic Neck/C-Spine: COMMON NORMALS: no JVD Resp: COMMON NORMALS: normal respiratory effort, No retractions, No use of accessory muscles and clear to auscultation bilaterally AUSCULTATION: clear to auscultation bilaterally Cardio: COMMON NORMALS: no JVD, regular rate, regular rhythm, S1 normal heart sound present and S2 normal heart sound present RATE: regular rate RHYTHM: regular rhythm HEART SOUNDS: S1 normal heart sound present and S2 normal heart sound present GI: COMMON NORMALS: Normal to inspection, nondistended, normoactive bowel so unds present, Soft to palpation, non-tender, no masses and no bruits PALPATION: Yes Soft to palpation Extremity: COMMON NORMALS: capillary refill normal, no clubbing, cyanosis or edema, no calf tenderness and no pedal edema Neuro: COMMON NORMALS: patient oriented x3 Psych: COMMON NORMALS: mental status grossly normal Data : 07/08/20 05:40 07/08/20 05:40 Micro: Microbiology 07/08/20 12:00 Bacterial Antigens - Final Urine,Voided 07/08/20 10:10 Blood Culture - Preliminary Blood SPECIMEN COLLECTED 07/08/20 10:03 Blood Culture - Preliminary Blood SPECIMEN COLLECTED 07/06/20 18:28 Blood Culture - Preliminary Blood NEGATIVE TO DATE 07/06/20 17:45 Blood Culture - Preliminary Blood 07/07/20 05:30 MRSA Culture - Final Nose A&P Assessment and plan (1) Acute respiratory failure with hypoxia: -Likely secondary to right-sided pneumonia -Patient's pulmonary emboli, is a small filling defect in the right lower lobe, I I am not convinced that it is playing a significant role Plan: -Continue broad-spectrum antibiotic therapy vancomycin, Rocephin, azithromycin -I will hold off on starting her on anticoagulation, given her liver cirrhosis, chronic thrombocytopenia, gastric varices, concern for significant bleeding -Monitor respiratory status closely -Sputum cultures, blood cultures, urine bacterial antigens Status: Acute (2) Pulmonary emboli: -CT angiogram of the chest shows a small filling defect in the right lower lobe consistent with pulmonary embolism -Hold off on anticoagulation as I am not convinced that it is playing a significant role -She actually denies any shortness of breath or chest pain, currently on room air -I have spoken to radiology, it is a small filling defect in the right lower lobe, -We will talk to the pulmonary service -Bilateral extremities negative for DVT, D-dimer 3.19, INR 1.62 -Holding off on anticoagulation as she is thrombocytopenia, anemia, has gastric varices, liver cirrhosis, supratherapeutic INR, high risk of bleeding Status: Acute (3) Pneumonia: Continue vancomycin, Rocephin, azithromycin Follow blood cultures, urine bacterial antigens, MRSA nares Status: Acute Qualifiers: Laterality: right Lung location: upper lobe of lung Pneumonia type: due to unspecified organism Qualified Code(s): J18.9 - Pneumonia, unspecified organism (4) Fall: PT OT Status: Acute Qualifiers: Encounter type: initial encounter Qualified Code(s): W19.XXXA - Unspecified fall, initial encounter (5) Diastolic heart failure: Does not clinically look fluid overloaded, has a right pleural effusion previously drained, currently has a minimal right pleural effusion Echocardiogram shows mild to moderate mitral stenosis, moderate aortic stenosis Status: Acute Qualifiers: Heart failure chronicity: chronic Qualified Code(s): I50.32 - Chronic diastolic (congestive) heart failure (6) HTN (hypertension): Status: Acute (7) Liver cirrhosis: -Secondary to hepatitis C -CT scan of the abdomen shows hepatic cirrhosis with varices, no ascites seen -Albumin 2, INR 1.6, bili 2.1, Justin Sol's C, meld 19 -I spoke to Dr. Espinoza at [facility], patient's GI physician, patient will be seen hopefully this week as she is developing evidence of liver failure, and will need more of her expedited evaluation -For now start spironolactone, Lasix -Continue nadolol -I would avoid any blood thinners given her gastric varices, she has a high risk of esophageal varices, and as above Status: Acute Additional A&P Information DVT prophylaxis. SCDs, anticoagulation contraindicated given liver cirrhosis, thrombocytopenia, gastric varices, high risk of bleeding Diabetes. Insulin sliding scale. CODE STATUS. She wants to be full code. The plan of care was discussed with the patient and her family. They verbalized understanding and agreement Attestations Medical Necessity Statement*: She requires hospitalization for acute respiratory failure secondary to pneumonia, liver cirrhosis, pulmonary emboli Coding Level of Care Code Acute Well Drill Operator for [facility] Fwd Diagnoses Acute respiratory failure with hypoxia J96.01 Pulmonary emboli I26.99 Pneumonia J18.9 Laterality: right Lung location: upper lobe of lung Pneumonia type: due to unspecified organism Fall W19.XXXA Encounter type: initial encounter Diastolic heart failure I50.32 Heart failure chronicity: chronic HTN (hypertension) I10 Liver cirrhosis K74.60
[2020-07-08 16:37] LABS: Glucose Point of Care 208 mg/dL (70-110)
[2020-07-08] MEDS: azithromycin 500 MG in sodium chloride 0.9% 250 ML 250 MG IV (16:38)
[2020-07-08] MEDS: vancomycin 1,000 MG in sodium chloride 0.9% 250 ML 250 MG IV (17:59)
[2020-07-08 20:27] LABS: Glucose Point of Care 196 mg/dL (70-110)
[2020-07-08 23:17] LABS: Ammonia 59 umol/L (11-51)
[2020-07-09] VITALS (7 sets, daily range): BP systolic 105–125; BP diastolic 45–70; PULSE 65–87; RESP 16–20; TEMP 36.6–37.1; O2SAT 95–99
[2020-07-09 05:31] LABS: Basophils % 0.4 %; Eosinophils # 0.1 10^3/uL (0.0-0.8); Eosinophils % 1.3 %; Hematocrit 30.2 % (37.0-47.0); Hemoglobin 10.7 g/dL (11.5-15.3); Lymphocytes % 20.5 %; Mean Corpuscular HGB Conc 35.4 g/dL (30.0-36.0); Mean Corpuscular Hemoglobin 36.3 pg (28.0-34.0); Mean Corpuscular Volume 102.4 fL (81-99); Mean Platelet Volume 12.1 fL (7.4-10.4); Monocytes # 0.5 10^3/uL (0.2-0.9); Neutrophils # 3.22 10^3/uL (1.8-7.7); Neutrophils % 67.2 %; Nucleated Red Blood Cells % 0 %; Platelet Count 63 10^3/cmm (130-400); Red Blood Count 2.95 10^6/uL (4.1-5.3); Red Cell Distribution Width 14.9 % (12.1-15.1); White Blood Count 4.8 10^3/uL (4.0-10.0)
[2020-07-09 05:35] LABS: INR 1.64 (0.8-1.2)
[2020-07-09 05:55] LABS: Alanine Aminotransferase 19 U/L (0-33); Alkaline Phosphatase 169 IU/L (35-105); Anion Gap 8.8 (5-19); Aspartate Amino Transferase 39 U/L (0-32); Blood Urea Nitrogen 13 mg/dL (8-23); Calcium 7.7 mg/dL (8.5-10.5); Carbon Dioxide 28 mmol/L (22-29); Chloride 101 mmol/L (98-107); Globulin 5.2 g/dL (1.3-4.6); Glucose 108 mg/dL (65-115); Magnesium 1.6 mg/dL (1.7-2.3); Osmolality Calculated 281 mOsm/kg (285-295); Phosphorus 2.7 mg/dL (2.5-4.5); Sodium 135 mmol/L (136-145); Total Bilirubin 2.3 mg/dL (0.15-1.2); Total Protein 7.2 g/dL (6.6-8.7)
[2020-07-09 05:58] LABS: Potassium 2.8 mmol/L (3.5-5.1)
[2020-07-09 06:15] LABS: C Reactive Protein 46.2 mg/L (0.0-4.9)
[2020-07-09] MEDS: sucralfate 1 gm Tablet PO ×2 (06:30→14:05)
[2020-07-09 06:41] LABS: NT Pro B Type Natriuretic Pept 421 pg/mL (0-450); Procalcitonin 1.31 ng/mL (0-0.5)
[2020-07-09 06:46] LABS: Glucose Point of Care 105 mg/dL (70-110)
--- NOTE | 2020-07-09 09:45 | PC.CHAP ---
Pastoral Care Encounter/Spiritual Assessment Type of Contact [] Declined technical implementation lead visit [] Patient/Family/Request visit [] Outpatient visit [] Follow-up visit [] Physician referral [] Code/Alert [x] Routine visit [] Staff referral [] Actively dying [] Patient sleeping [] Family support [] [] Out of room [] Palliative care [] [] Receiving care in room [] Pre-surgical visit [] Trauma [] Long length of stay [] ICU visit [] Other: Relational/Emotional Strength [x] Patient feels connected with others/family/visitors/staff [] Distress [] Loneliness/isolation [] Abandonment Spirituality of Patient [x] Person of Tiffany [] Attends Jain of their Tiffany [x] Believes in Prayer [] Reads Bible or Hinduism materials [] There are Spiritual issues to be addressed Organ Fixer Interventions x[] Prayer [x]x Active listening [] Non-anxious presence [] Spiritual/emotional support [] Crisis/trauma care [] Spiritual counseling [] Bereavement support [] Provided bereavement packet [] Provided Bible/devotional materials [] Provided toy/stuffed animal, coloring book to patient or family member [] Provided Communion [] Anointing/Sharon [] Salvation [x] Completed spiritual assessment [] Other: Impact on Illness or Injury [] Angry [] Fearful [] Anxious [] Often cries [] Exhaustion [] Unable to work [] Unable to attend temple [] Unable to walk/stand [] Unable to read [] Unable to drive [] Unable to eat/drink [] Unable to sleep [] Unable to be with family [] Patient intubated [] Other: Summary Time spent with patient 10 min
[2020-07-09 11:01] LABS: Glucose Point of Care 305 mg/dL (70-110)
--- NOTE | 2020-07-09 11:39 | PM.DCS ---
Discharge Providers Date of Admission: 07/06/20 17:30 Date of Discharge: July 09, 2020 Attending Provider at Admission: Vamshi Bennett Attending Provider at Discharge: Bishnu Nuñez MD Primary Care Provider: Dmitry Hogan Diagnoses at Discharge Discharge Diagnosis (1) Acute respiratory failure with hypoxia: Status: Acute (2) Pulmonary emboli: Status: Acute (3) Pneumonia: Status: Acute Qualifiers: Laterality: right Lung location: upper lobe of lung Pneumonia type: due to unspecified organism Qualified Code(s): J18.9 - Pneumonia, unspecified organism (4) Fall: Status: Acute Qualifiers: Encounter type: initial encounter Qualified Code(s): W19.XXXA - Unspecified fall, initial encounter (5) Diastolic heart failure: Status: Acute Qualifiers: Heart failure chronicity: chronic Qualified Code(s): I50.32 - Chronic diastolic (congestive) heart failure (6) HTN (hypertension): Status: Acute (7) Liver cirrhosis: Status: Acute Reason for Visit Reason for Visit: FALL OUT OF BED Hospital Course Hospital Course This is a 74-year-old female with a past medical history of noninsulin-dependent type 2 diabetes mellitus, hypertension, diastolic CHF, liver cirrhosis who presents to [facility] for a fall On admission patient was found to have hypoxia, on 2 L, she had complaints of a fever, with generalized weakness and tiredness, no reported shortness of breath, no chest pain For her fall, no acute fractures, she received PT OT as inpatient, discharged with home health care Patient was admitted to [facility] for hypoxia secondary to right-sided pneumonia, she was treated with broad-spectrum antibiotic therapy, clinically monitored, she was weaned to room air, ambulating without significant symptomatology, no shortness of breath, no fevers, blood cultures have been unremarkable. Patient will be discharged on 5 remaining days of Augmentin, she does not require oxygen on discharge. Patient was also found to have a small filling defect in the right lower lobe, patient had no complaints of chest pain, no shortness of breath, D-dimer was 3, bilateral lower extremity ultrasounds were negative for DVTs, etiology of pulmonary emboli is uncertain. Unfortunately given patient's advanced liver failure, with an INR 1.64, hemoglobin 10.7, platelet count 63, CT evidence of gastric varices, the potential for esophageal varices given her advanced liver failure she was deemed to have a high risk for anticoagulation. I was not convinced that patient's pulmonary emboli was playing a significant role in hypoxia. I had a extensive discussion with patient and family about anticoagulation, risks and benefits were discussed, they voiced understanding, all questions answered for now they have declined anticoagulation. I had a discussion with patient and family about IVC filter placement, significant risks associated with filter placement include bleeding given her elevated INR and low platelet count. After discussion of the risks and benefits, they voiced understanding, all questions answered, they have declined IVC filter placement. They understand that any point she could develop an embolic event, associated with significant morbidity and mortality, they voiced understanding, all questions answered. Patient and family would like to follow-up with Dr. Dye for further discussion after further research and discussion. Patient has a history of liver cirrhosis, she has not seen a online content editor for her liver cirrhosis, it is managed by her primary care: -Patient states that she has a history of hepatitis C -Patient's abdominal CT showed hepatic cirrhosis with varices in the upper abdomen -Significant splenorenal varices, portal hypertension -Patient also developed recurrent right pleural effusions, likely hepatic hydrothorax, tapped in [place] -She has evidence of advancing liver failure -INR 1.6 -Hemoglobin 10.7, platelet count 63,000 -Creatinine 0.8 -T bili as high as 4.7 -Albumin as low as 2.0 -Ammonia as high as 59 -Child Sol score C, meld score 19 -I had discussion with patient and daughter about patient's advanced liver failure, she will need to see a mine administrator supervisor within the next few weeks, -I spoke to Dr. Espinoza at [facility], patient was supposed to see him this week, but was here in the hospital, we have rescheduled her appointment for this week -I have discharged the patient on Lasix, spironolactone, lactulose -Patient was advised to avoid blood thinners, avoid NSAIDs, avoid hepatotoxic agents -She was advised to monitor for esophageal variceal bleed, if she were to have hematemesis to go to the emergency room immediately -Monitor for fevers, and abdominal pain distention, if so this is an indication of SBP she should come to the emergency room -Patient was advised to monitor for increased confusion, as this can be associated with hepatic encephalopathy given elevated ammonia levels Patient's echocardiogram also showed mild to moderate mitral stenosis, mitral valve area of 1.9, and moderate aortic stenosis. We will have patient follow-up with cardiology. Physical Exam Const: COMMON NORMALS: no acute distress and patient oriented x3 HENMT: COMMON NORMALS: normocephalic HEAD & SCALP: normocephalic Neck/C-Spine: COMMON NORMALS: no JVD Resp: COMMON NORMALS: normal respiratory effort, No retractions, No use of accessory muscles and clear to auscultation bilaterally AUSCULTATION: clear to auscultation bilaterally Cardio: COMMON NORMALS: no JVD, regular rate, regular rhythm, S1 normal heart sound present and S2 normal heart sound present RATE: regular rate RHYTHM: regular rhythm HEART SOUNDS: S1 normal heart sound present and S2 normal heart sound present GI: COMMON NORMALS: Normal to inspection, nondistended, normoactive bowel sounds present, Soft to palpation, non-tender, No hepatosplenomegaly present, no masses and no bruits PALPATION: Yes Soft to palpation and Yes No hepatosplenomegaly present Extremity: COMMON NORMALS: capillary refill normal, no clubbing, cyanosis or edema, no calf tenderness and no pedal edema Neuro: COMMON NORMALS: patient oriented x3 Psych: COMMON NORMALS: mental status grossly normal Discharge Data Data Completed and Pending: Completed Studies During Hospitalization Category Date Time Status CT abdomen pelvis wo con [id number] Rout ine Cat Scan 07/07/20 11:[address] angio chest PE protcl [id number] Stat Cat Scan 07/07/20 11:[address] cervical spin wo con* [id number] Urge nt Cat Scan 07/06/20 16:[address] head wo con* [id number] Urgent Cat Scan 07/06/20 16:[address] lumbar spine w o con* [id number] Urgen t Cat Scan 07/06/20 16:[address] thoracic spin wo con* [id number] Urge nt Cat Scan 07/06/20 16:13 Completed XR chest 1V rosita ble [id number] Stat Exams 07/06/20 16:13 Completed CV echo complete* [id number] Routine Ultrasound 07/07/20 11:06 [place] [id number] Routin e Ultrasound 07/07/20 17:11 Completed Pending at discharge Category Date Time Status Blood Culture Sta t Lab 07/06/20 18:28 Results Blood Culture Sta t Lab 07/08/20 10:10 Results C Reactive Protei n AM LABS Lab 07/10/20 04:00 Ordered C Reactive Protei n AM LABS Lab 07/11/20 04:00 Ordered Complete Blood Co unt w/Auto AM LABS Lab 07/10/20 04:00 Ordered Comprehensive Met abolic Panel AM LA BS Lab 07/10/20 04:00 Ordered Magnesium AM LABS Lab 07/10/20 04:00 Ordered NT Pro B Type Kelly riuretic Pept QAM Lab 07/10/20 06:00 Ordered NT Pro B Type Kelly riuretic Pept QAM Lab 07/11/20 06:00 Ordered Phosphorus AM LAB S Lab 07/10/20 04:00 Ordered Procalcitonin AM LABS Lab 07/10/20 04:00 Ordered Procalcitonin AM LABS Lab 07/11/20 04:00 Ordered Prothrombin Time INR AM LABS Lab 07/10/20 04:00 Ordered Prothrombin Time INR AM LABS Lab 07/11/20 04:00 Ordered Sputum Culture an d Gram Stain Routi ne Lab 07/06/20 19:25 Uncollected Urine Culture Sta t Lab 07/08/20 12:00 Received Vancomycin Trough Timed Lab 07/09/20 16:30 Ordered Labs from last 24 hours 07/09/20 07/09/20 07/09/20 10:48 06:38 05:04 WBC RBC Hgb Hct MCV MCH MCHC RDW Plt Count MPV Neut % (Auto) Lymph % (Auto) Braxton % (Auto) Eos % (Auto) Baso % (Auto) Neut # (Auto) Lymph # (Auto) Braxton # (Auto) Eos # (Auto) Baso # (Auto) Nucleated RBC % (a uto) Nucleated RBCs # PT INR Sodium Potassium Chloride Carbon Dioxide Anion Gap BUN Creatinine GFR Calculation Glucose POC Glucose 305 H 105 Calculated Osmolal ity Calcium Phosphorus Magnesium Total Bilirubin AST ALT Alkaline Phosphata se Ammonia C-Reactive Protein NT-Pro-B Natriuret Pep 421 Total Protein Albumin Globulin Procalcitonin 1.31 H 07/09/20 07/09/20 07/09/20 05:04 05:04 05:04 WBC RBC Hgb Hct MCV MCH MCHC RDW Plt Count MPV Neut % (Auto) Lymph % (Auto) Braxton % (Auto) Eos % (Auto) Baso % (Auto) Neut # (Auto) Lymph # (Auto) Braxton # (Auto) Eos # (Auto) Baso # (Auto) Nucleated RBC % (a uto) Nucleated RBCs # PT 20.00 H INR 1.64 H Sodium 135 L Potassium 2.8 L* Chloride 101 Carbon Dioxide 28 Anion Gap 8.8 BUN 13 Creatinine 0.8 GFR Calculation Not Reportable Glucose 108 POC Glucose Calculated Osmolal ity 281 L Calcium 7.7 L Phosphorus 2.7 Magnesium 1.6 L Total Bilirubin 2.3 H AST 39 H ALT 19 Alkaline Phosphata se 169 H Ammonia C-Reactive Protein 46.2 H NT-Pro-B Natriuret Pep Total Protein 7.2 Albumin 2.0 L Globulin 5.2 H Procalcitonin 07/09/20 07/08/20 07/08/20 05:04 20:19 18:15 WBC 4.8 RBC 2.95 L Hgb 10.7 L Hct 30.2 L MCV 102.4 H MCH 36.3 H MCHC 35.4 RDW 14.9 Plt Count 63 L MPV 12.1 H Neut % (Auto) 67.2 Lymph % (Auto) 20.5 Braxton % (Auto) 10.0 Eos % (Auto) 1.3 Baso % (Auto) 0.4 Neut # (Auto) 3.22 Lymph # (Auto) 1.0 Braxton # (Auto) 0.5 Eos # (Auto) 0.1 Baso # (Auto) 0.0 Nucleated RBC % (a uto) 0 Nucleated RBCs # 0.0 PT INR Sodium Potassium Chloride Carbon Dioxide Anion Gap BUN Creatinine GFR Calculation Glucose POC Glucose 196 H Calculated Osmolal ity Calcium Phosphorus Magnesium Total Bilirubin AST ALT Alkaline Phosphata se Ammonia 59 H C-Reactive Protein NT-Pro-B Natriuret Pep Total Protein Albumin Globulin Procalcitonin 07/08/20 07/08/20 16:29 11:05 WBC RBC Hgb Hct MCV MCH MCHC RDW Plt Count MPV Neut % (Auto) Lymph % (Auto) Braxton % (Auto) Eos % (Auto) Baso % (Auto) Neut # (Auto) Lymph # (Auto) Braxton # (Auto) Eos # (Auto) Baso # (Auto) Nucleated RBC % (a uto) Nucleated RBCs # PT INR Sodium Potassium Chloride Carbon Dioxide Anion Gap BUN Creatinine GFR Calculation Glucose POC Glucose 208 H 232 H Calculated Osmolal ity Calcium Phosphorus Magnesium Total Bilirubin AST ALT Alkaline Phosphata se Ammonia C-Reactive Protein NT-Pro-B Natriuret Pep Total Protein Albumin Globulin Procalcitonin Vitals: Last Vital Signs Temp 98.5 F 07/09/20 11:16 Pulse 66 07/09/20 11:16 Resp 18 07/09/20 11:16 BP 124/70 07/09/20 11:16 Pulse Ox 96 07/09/20 11:16 Discharge Plan Discharge Patient Disposition: Home Condition: Stable Prescriptions: New furosemide 40 mg Tablet 40 mg PO DAILY@0800 30 Days Qty: 30 RF: 0 spironolactone 25 mg Tablet 100 mg PO DAILY 30 Days Qty: 30 RF: 0 pantoprazole 40 mg Tablet,Delayed Release (Dr/Ec) 40 mg PO BID 30 Days Qty: 60 RF: 0 lactulose 20 gram/30 mL Solution 20 g PO BID Qty: 1200 RF: 0 amoxicillin-pot clavulanate [Augmentin] 875-125 mg tablet 1 tab PO BID 5 Days Qty: 10 RF: 0 Continued nadolol 20 mg tablet 10 mg PO DAILY RF: 0 metformin 500 mg tablet extended release 24 hr 500 mg PO DAILY RF: 0 Changed potassium chloride 20 mEq tablet extended release 40 meq PO DAILY 30 Days Qty: 60 RF: 0 Held sulfasalazine 500 mg tablet 0.5 gm PO BID RF: 0 Hold Instructions: Resume on 07/23/20. hold until you see primary care Discontinued furosemide 40 mg tablet 40 mg PO DAILY PRN (Reason: weight gain) RF: 0 irbesartan 150 mg tablet 150 mg PO DAILY Qty: 90 RF: 3 Discharge Orders: Discharge Order (Routine); Ordered 07/09/20 Ordered By: Bishnu Nuñez Referrals: [facility] [Outside] ([facility] will be calling you to set up a schedule for your home health services.) Dmitry Hogan [Primary Care Provider] - Gregory Massey MD [Physician] - 1 week Discharge Diet: Cardiac Discharge Activity: Resume usual activity Patient Instructions: Pulmonary Embolism (DC), Fulminant Hepatic Failure (DC) Discharge Attestations Time Spent in Discharge Care*: greater than 30 min Quality Metrics Clinical Quality Measures During this hospital stay, did patient experience: None Coding Level of Care Code Acute Teller for Chg Fwd Exam Comprehensive Diagnoses Acute respiratory failure with hypoxia J96.01 Pulmonary emboli I26.99 Pneumonia J18.9 Laterality: right Lung location: upper lobe of lung Pneumonia type: due to unspecified organism Fall W19.XXXA Encounter type: initial encounter Diastolic heart failure I50.32 Heart failure chronicity: chronic HTN (hypertension) I10 Liver cirrhosis K74.60
[2020-07-09] MEDS: spironolactone 25 mg Tablet 100 MG PO (11:45)
[2020-07-09] MEDS: phosphorus 250 mg Tablet PO (11:46)
[2020-07-09] MEDS: pantoprazole DR 40 mg Tablet PO (11:46)
[2020-07-09] MEDS: FUROsemide 40 mg Tablet PO (11:46)
--- NOTE | 2020-07-09 12:16 | PC.SOCIAL ---
IMM UPDATE: PG 2 of IMM update given to patient who verbalized an understanding, initialed, dated, and placed in chart.
[2020-07-09] MEDS: potassium chloride oral liq 20 mEq/15 mL UDC 80 MEQ PO (14:05)
--- NOTE | 2020-07-09 16:21 | PC.NURSE ---
IV access was lost around 1000. this nurse attempted to start a new IV on this patient twice and was unsuccessful both times. The patient had minimal complaints of pain when attempting to start these IV's on her. The doctor was notified. IV potassium was changed to oral potassium per MD.
== END 2020-07-09 16:23 | disposition home or self-care (01) | DRG 189 ==
LOC: ER 18:14 → MEDSURG 18:23
PROVIDERS: Admitting Provider Internal Medicine; Emergency Provider Emergency Medicine; PCP Physician Assistant Medical; Visit Provider Family Medicine
DX: J96.01 Acute respiratory failure with hypoxia (principal); J18.9 Pneumonia, unspecified organism; I26.99 Other pulmonary embolism without acute cor pulmonale; I50.32 Chronic diastolic (congestive) heart failure; N17.9 Acute kidney failure, unspecified; K76.6 Portal hypertension; W06.XXXA Fall from bed, initial encounter; B19.20 Unspecified viral hepatitis C without hepatic coma; K74.60 Unspecified cirrhosis of liver; I11.0 Hypertensive heart disease with heart failure; E86.0 Dehydration; E87.6 Hypokalemia; K80.20 Calculus of gallbladder without cholecystitis without obstruction; K57.30 Diverticulosis of large intestine without perforation or abscess without bleeding; E11.9 Type 2 diabetes mellitus without complications; Z79.84 Long term (current) use of oral hypoglycemic drugs
CPT/HCPCS: 36415; 36416; 70450; 71045; 71275; 72125; 72128; 72131; 74176; 80048; 80053; 81001; 82140; 82962; 83036; 83605; 83735; 83880; 84100; 84145; 85025; 85378; 85610; 85730; 86140; 86403; 87040; 87086; 87205; 87449; 87641; 93306; 93970; 94664; 96365; 96367; 96372; 97116; 97161; 97165; 97530; 99285; J0456; J0696; J1644; J1650; J1815; J1940; J3370; J3475; J3480; J3490; J7030; J7050; Q9967

== ENCOUNTER 2020-08-20 12:50 | Outpatient (CLI) | payer MEDICARE, OTHER, SELFPAY ==
--- NOTE | 2020-08-20 13:02 | MM_ITS ---
WS: [id number] BILATERAL DIGITAL DIAGNOSTIC MAMMOGRAM MAMMOGRAPHY WITH CAD CLINICAL INFORMATION: LEFT BREAST LUMP/MASS UPPER OUTER QUADRANT HISTORY: COMPARISON: None. TECHNIQUE: Bilateral CC, MLO, and ML views. FINDINGS: Scattered fibroglandular densities bilaterally. Vascular calcification. Secretory calcifications. Dale ateral breast biopsy clips. Palpable markers along the axillary tail. No underlying mammographic abno rmalities. Ultrasound is pending. ULTRASOUND BREAST BILATERAL TECHNIQUE: Ultrasound bilateral breast focused area of concern. CLINICAL INFORMATION: LEFT BREAST LUMP/MASS UPPER OUTER QUADRANT COMPARISON: None. FINDINGS: Ultrasound right breast at the 12:00 position. Ultrasound left breast at the 1:00 position. Normal un derlying breast tissue in both locations. No cystic or solid lesions. No suspicious findings to targe t for biopsy. Findings are benign. MM/[place] [id number] IMPRESSION: BI-RADS: 2-Benign FOLLOW UP: 1 Year Follow-up Recommend return to annual screening mammography.
== END 2020-08-20 12:51 | disposition home or self-care (01) ==
LOC: RADSHAW 12:55
PROVIDERS: PCP Physician Assistant Medical; Visit Provider Physician Assistant Medical
DX: N63.21 Unspecified lump in the left breast, upper outer quadrant (principal)
CPT/HCPCS: 76642; 77066

== ENCOUNTER 2020-09-05 12:08 | Inpatient (IN) | payer MEDICARE, OTHER, SELFPAY ==
[2020-09-05] VITALS (7 sets, daily range): BP systolic 114–157; BP diastolic 62–74; PULSE 80–99; RESP 16–20; TEMP 36.1–37; O2SAT 94–97; BMI 25.0
--- NOTE | 2020-09-05 12:35 | CT_ITS ---
WS: [id number] CT scan of the head, 09/05/2020 Clinical Data: altered mental status Comparison: CT head, 07/06/2020. DLP: 2461.[address] scans at [facility] use at least one of these dose optimization techniques: automat ed exposure control; mA and/or kV adjustment per patient size (includes targeted exams where dose is matched to clinical indication); or iterative reconstruction. Findings: The ventricular system is normal without shift. No recent infarct or hemorrhage is seen. There are no abnormal intracerebral masses. The cerebellum and brainstem are not remarkable. Bony windows of the skull and skull base show no fractures or erosions. The mastoid air cells, dental intern al auditory canals, sella turcica, intraorbital contents, and paranasal sinuses are unremarkable. CT/CT head wo con* [id number] Impression: Negative CT scan of the head
--- NOTE | 2020-09-05 12:35 | XR_ITS ---
WS: [id number] Portable AP upright chest, 09/05/2020 Clinical Data: dyspnea/cough Comparison: Portable chest, 07/06/2020. Findings: Bilateral patchy opacities are seen in both lungs. There is a small right pleural effusion. No nodules, masses or effusions are seen. The heart is normal. The pulmonary vascularity is not incr eased. No pneumothorax is seen. The aortic arch and descending aorta are tortuous. There is an old ri ght posterior lateral rib fracture. Monitor leads are on the chest wall. XR/XR chest 1V portable [id number] Impression: 1. Bilateral patchy pulmonary opacities which may represent acute and/or chroni c pneumonia. 2. Small right pleural effusion. 3. Atherosclerosis.
[2020-09-05 13:05] LABS: ABG PCO2 34.7 mmHg (35-45); ABG PH Result 7.53 (7.35-7.45); Blood Gas Allen Test Pos; Blood Gas Operator Identificat MONRO; Blood Gas Sample Site Radial, right; Blood Gas Sample Type Arterial; Carboxyhemoglobin 2.1 %THgb (0.4-20.1); HCO3 ABG 28.8 mmol/L (22-26); HGB O2 Sat 93.9 % (95-100); Ionized Calcium Level - ABG 1.1 mmol/L (1.1-1.4); Methemoglobin 0.8 % (0.4-1.5); Oxygen Device ROOM AIR; Oxygen Saturation ABG 96.7; PO2 ABG 75.4 mmHg (80.0-100.0); Potassium Level - ABG 2.8 mmol/L (3.5-5.0); Total Hemoglobin 11.4 g/dL (12-16)
[2020-09-05 13:06] LABS: Basophils % 0.4 %; Eosinophils % 0.4 %; Hematocrit 32.9 % (37.0-47.0); Hemoglobin 11.9 g/dL (11.5-15.3); Lymphocytes # 0.4 10^3/uL (0.8-4.8); Lymphocytes % 8.5 %; Mean Corpuscular HGB Conc 36.2 g/dL (30.0-36.0); Mean Corpuscular Hemoglobin 38.3 pg (28.0-34.0); Mean Corpuscular Volume 105.8 fL (81-99); Mean Platelet Volume 11.8 fL (7.4-10.4); Monocytes # 0.5 10^3/uL (0.2-0.9); Monocytes % 9.8 %; Neutrophils # 3.86 10^3/uL (1.8-7.7); Neutrophils % 80.3 %; Nucleated Red Blood Cells % 0 %; Platelet Count 63 10^3/cmm (130-400); Red Blood Count 3.11 10^6/uL (4.1-5.3); Red Cell Distribution Width 15.2 % (12.1-15.1); White Blood Count 4.8 10^3/uL (4.0-10.0)
[2020-09-05] MEDS: ondansetron 2 mg/ML SDV 2 mL 4 MG IVP (13:08)
--- NOTE | 2020-09-05 13:26 | W.ED.AMS ---
HPI - Altered Mental Status General: Chief Complaint: Altered Mental Status Stated Complaint: AMS Time Seen by Provider: 09/05/20 12:34 History of Present Illness: HPI narrative: 74-year-old female who presents to the emergency room via EMS from home. She is found sitting on the toilet at home is altered mental status she is awake and will answer questions as to where she is at. But she does not know why she is here or what happened that resulted in her being here. At baseline she is alert and oriented and manages all her own ADLs. Her last known normal was yesterday. Family reported she has a little bit of slurred speech but otherwise no abnormalities. She has a history of liver failure in the past. Blood glucose in the field was 172. She denies chest pain abdominal pain she denies difficulty with vomiting or diarrhea. No dysuria urgency or frequency. MD complaint: altered mental status and weakness Onset (ago): unknown Timing confirmed by: family member Severity: moderate Consistency of symptoms: Getting Worse Associated symptoms: Deny auditory hallucinations, visual hallucinations or delusions Review of Systems Const: Denies: fever(s), chills, body aches, change in appetite, fatigue or malaise ENMT: Denies: throat pain, ear or mastoid pain, nasal discharge or nasal congestion Card: Denies: chest pain, edema, dyspnea on exertion or orthopnea Resp: Denies: dyspnea, productive cough or non-productive cough GI: Denies: abdominal pain, nausea, vomiting, hematemesis, coffee ground emesis, diarrhea, constipation, bloating, hematochezia or melena : Denies: flank pain, difficulty voiding, dysuria, urinary frequency or urinary urgency Skin/Breast: Denies: rash or pruritus Psych: Denies: visual hallucinations or auditory hallucinations PFS ED PFSH: Medical History (Updated 09/08/20 @ 07:35 by Arcadio Knott DO) Diabetes mellitus Diastolic heart failure HTN (hypertension) Hyperlipidemia Liver cirrhosis Ulcerative colitis Surgical History (Updated 09/05/20 @ 18:27 by Watson Trivedi MD) S/P bladder repair S/P hip replacement S/P knee surgery Family History Denies family history of Anesthesia complication Bleeding disorder Social History (Updated 09/05/20 @ 18:28 by Watson Trivedi MD) Smoking and tobacco status: never smoked Alcohol intake: never Lives independently: Yes Household members: none Housing: House Physical Exam Const: COMMON NORMALS: no acute distress GENERAL APPEARANCE: cooperative and comfortable HENMT: COMMON NORMALS: normocephalic, atraumatic and hearing grossly normal bilaterally HEAD & SCALP: normocephalic and atraumatic Eye: COMMON NORMALS: Equal, round and reactive pupils present, EOMs intact bilaterally, conjunctivae normal and no scleral icterus CONJUNCTIVA: Yes conjunctivae normal PUPIL: Yes Equal, round and reactive pupils present Neck/C-Spine: COMMON NORMALS: full ROM, no lymphadenopathy, supple and no JVD Lymph: LYMPHATIC: no lymphadenopathy noted and no lymphedema noted Resp: COMMON NORMALS: normal respiratory effort, No retractions, No use of accessory muscles and clear to auscultation bilaterally AUSCULTATION: clear to auscultation bilaterally Cardio: COMMON NORMALS: no JVD, regular rate, regular rhythm and No murmurs present (Cardio) RATE: regular rate RHYTHM: regular rhythm GI: COMMON NORMALS: Soft to palpation and No hepatosplenomegaly present AUSCULTATION: Yes normoactive bowel sounds PALPATION: Yes Soft to palpation, No Tenderness to palpation present (GI), No Guarding due to palpation present (GI) and Yes No hepatosplenomegaly present Extremity: COMMON NORMALS: normal to inspection, capillary refill normal, no clubbing, cyanosis or edema, no calf tenderness and no pedal edema Psych: THOUGHT CONTENT: No delusions Skin: COMMON NORMALS: no rashes or lesions noted GENERAL SKIN EXAM: no rashes or lesions noted Course Vital Signs: Vital signs: Vital Signs Temperature 98.3 F 09/07/20 14:12 Pulse Rate 90 09/07/20 14:12 Respiratory Rate 18 09/07/20 14:12 Blood Pressure 144/74 09/07/20 14:12 Pulse Oximetry 92 09/07/20 14:12 MDM - Altered Mental Status MDM Narrative: Medical decision making narrative: Encephalopathic with a history of liver cirrhosis. She also has hypertension hypokalemia. We will go ahead and admit her patient started on Rocephin. Lab Data: Labs: Lab Results 04/23/21 04/23/21 04/23/21 Range/Units 11:00 11:00 12:52 WBC 4.8 (4.0-10.0) 10^3/ uL RBC 3.11 L (4.1-5.3) 10^6/u L Hgb 11.9 (11.5-15.3) g/dL Hct 32.9 L (37.0-47.0) % MCV 105.8 H (81-99) fL MCH 38.3 H (28.0-34.0) pg MCHC 36.2 H (30.0-36.0) g/dL RDW 15.2 H (12.1-15.1) % Plt Count 63 L (130-400) 10^3/c mm MPV 11.8 H (7.4-10.4) fL Neut % (Auto) 80.3 % Lymph % (Auto) 8.5 % Whitfield % (Auto) 9.8 % Eos % (Auto) 0.4 % Baso % (Auto) 0.4 % Neut # (Auto) 3.86 (1.8-7.7) 10^3/u L Lymph # (Auto) 0.4 L (0.8-4.8) 10^3/u L Whitfield # (Auto) 0.5 (0.2-0.9) 10^3/u L Eos # (Auto) 0.0 (0.0-0.8) 10^3/u L Baso # (Auto) 0.0 (0.0-0.1) 10^3/u L Nucleated RBC % (a uto) 0 % Nucleated RBCs # 0.0 /100WBC PT (12.1-14.9) SECO NDS INR (0.8-1.2) Specimen Type Arterial Sample Site Radial, right ABG pH 7.53 H (7.35-7.45) ABG pCO2 34.7 L (35-45) mmHg ABG pO2 75.4 L (80.0-100.0) mmH g ABG HCO3 28.8 H (22-26) mmol/L ABG O2 Saturation 96.7 ABG Base Excess 6.0 H (-2.0-2.0) mmol/ L Theron Test Pos A-a O2 Gradient 4.0 L (5-10) mmHg Hematocrit 35.0 L (37-47) % Hgb O2 Saturation 93.9 L (95-100) % Carboxyhemoglobin 2.1 (0.4-20.1) %THgb Methemoglobin 0.8 (0.4-1.5) % Total Hemoglobin 11.4 L (12-16) g/dL Ionized Calcium 1.1 (1.1-1.4) mmol/L O2 Delivery Device Room air FiO2 21.0 % Criminal Justice Lawyer ID [place] Sodium Cancelled 139.0 Potassium Cancelled 2.8 L Chloride Cancelled Carbon Dioxide Cancelled Anion Gap Cancelled BUN Cancelled Creatinine Cancelled GFR Calculation Cancelled Glucose Cancelled 164.0 H POC Glucose (70-110) mg/dL Estimat Average Gl ucose Hemoglobin A1c (4.0-6.0) % Calculated Osmolal ity Cancelled Calcium Cancelled Phosphorus (2.5-4.5) mg/dL Magnesium Cancelled Iron (37-145) ug/dL TIBC mcg/dl % Saturation (20-50) % Unsat Iron Binding (112-347) ug/dL Total Bilirubin Cancelled AST Cancelled ALT Cancelled Alkaline Phosphata se Cancelled Ammonia (11-51) umol/L Creatine Kinase Cancelled Total Protein Cancelled Albumin Cancelled Globulin Cancelled Triglycerides (0-150) mg/dL Cholesterol (0-200) mg/dL LDL Cholesterol, C alc (50-129) mg/dL Total VLDL Cholest denae (0-30) mg/dL HDL Cholesterol (60-100) mg/dL Cholesterol/HDL Ra ann marie (0.0-4.40) mg/dL Lipase Cancelled Procalcitonin (0-0.5) ng/mL TSH (0.27-4.20) uIU/ mL Urine Color (Yellow) Urine Appearance (CLEAR) Urine pH (5-7) Ur Specific Gravit y (1.005-1.030) Urine Protein (Negative) Urine Glucose (UA) (Normal) Urine Ketones (Negative) Urine Blood (Negative) Urine Nitrate (Negative) Urine Bilirubin (Negative) Urine Urobilinogen (Negative) mg/dL Ur Leukocyte Maddi ase (Negative) Urine RBC (0-2) /hpf Urine WBC (0-5) /hpf Ur Squamous Epith Cells (0-5) /hpf Amorphous Sediment Urine Bacteria (NONE) /hpf Urine Mucus /hpf Hepatitis A IgM Ab (Nonreactive) Hep Bs Antigen (Nonreactive) Hep Bs Antibody (11.5-1000) Hep B Core Total A b (Nonreactive) Hepatitis C Antibo dy (Nonreactive) 09/05/20 09/05/20 09/05/20 Range/Units 13:35 13:35 13:35 WBC (4.0-10.0) 10^3/ uL RBC (4.1-5.3) 10^6/u L Hgb (11.5-15.3) g/dL Hct (37.0-47.0) % MCV (81-99) fL MCH (28.0-34.0) pg MCHC (30.0-36.0) g/dL RDW (12.1-15.1) % Plt Count (130-400) 10^3/c mm MPV (7.4-10.4) fL Neut % (Auto) % Lymph % (Auto) % Whitfield % (Auto) % Eos % (Auto) % Baso % (Auto) % Neut # (Auto) (1.8-7.7) 10^3/u L Lymph # (Auto) (0.8-4.8) 10^3/u L Whitfield # (Auto) (0.2-0.9) 10^3/u L Eos # (Auto) (0.0-0.8) 10^3/u L Baso # (Auto) (0.0-0.1) 10^3/u L Nucleated RBC % (a uto) % Nucleated RBCs # /100WBC PT (12.1-14.9) SECO NDS INR (0.8-1.2) Specimen Type Sample Site ABG pH (7.35-7.45) ABG pCO2 (35-45) mmHg ABG pO2 (80.0-100.0) mmH g ABG HCO3 (22-26) mmol/L ABG O2 Saturation ABG Base Excess (-2.0-2.0) mmol/ L Theron Test A-a O2 Gradient (5-10) mmHg Hematocrit (37-47) % Hgb O2 Saturation (95-100) % Carboxyhemoglobin (0.4-20.1) %THgb Methemoglobin (0.4-1.5) % Total Hemoglobin (12-16) g/dL Ionized Calcium (1.1-1.4) mmol/L O2 Delivery Device FiO2 % Criminal Justice Lawyer ID Sodium 137 Potassium 2.8 L* Chloride 100 Carbon Dioxide 28 Anion Gap 11.8 BUN 14 Creatinine 0.7 GFR Calculation Not Reportable Glucose 155 H POC Glucose (70-110) mg/dL Estimat Average Gl ucose Hemoglobin A1c (4.0-6.0) % Calculated Osmolal ity 288 Calcium 8.2 L Phosphorus (2.5-4.5) mg/dL Magnesium 1.7 Iron 107 (37-145) ug/dL TIBC 176 mcg/dl % Saturation 60.7 H (20-50) % Unsat Iron Binding 69 L (112-347) ug/dL Total Bilirubin 4.2 H AST 61 H ALT 6 Alkaline Phosphata se 253 H Ammonia 52 H (11-51) umol/L Creatine Kinase 171 Total Protein 8.3 Albumin 2.6 L Globulin 5.7 H Triglycerides (0-150) mg/dL Cholesterol (0-200) mg/dL LDL Cholesterol, C alc (50-129) mg/dL Total VLDL Cholest denae (0-30) mg/dL HDL Cholesterol (60-100) mg/dL Cholesterol/HDL Ra ann marie (0.0-4.40) mg/dL Lipase 58 Procalcitonin 0.26 (0-0.5) ng/mL TSH (0.27-4.20) uIU/ mL Urine Color (Yellow) Urine Appearance (CLEAR) Urine pH (5-7) Ur Specific Gravit y (1.005-1.030) Urine Protein (Negative) Urine Glucose (UA) (Normal) Urine Ketones (Negative) Urine Blood (Negative) Urine Nitrate (Negative) Urine Bilirubin (Negative) Urine Urobilinogen (Negative) mg/dL Ur Leukocyte Maddi ase (Negative) Urine RBC (0-2) /hpf Urine WBC (0-5) /hpf Ur Squamous Epith Cells (0-5) /hpf Amorphous Sediment Urine Bacteria (NONE) /hpf Urine Mucus /hpf Hepatitis A IgM Ab (Nonreactive) Hep Bs Antigen (Nonreactive) Hep Bs Antibody (11.5-1000) Hep B Core Total A b (Nonreactive) Hepatitis C Antibo dy (Nonreactive) 09/05/20 09/05/20 09/05/20 Range/Units 13:35 13:35 13:46 WBC (4.0-10.0) 10^3/ uL RBC (4.1-5.3) 10^6/u L Hgb (11.5-15.3) g/dL Hct (37.0-47.0) % MCV (81-99) fL MCH (28.0-34.0) pg MCHC (30.0-36.0) g/dL RDW (12.1-15.1) % Plt Count (130-400) 10^3/c mm MPV (7.4-10.4) fL Neut % (Auto) % Lymph % (Auto) % [place]field % (Auto) % Eos % (Auto) % Baso % (Auto) % Neut # (Auto) (1.8-7.7) 10^3/u L Lymph # (Auto) (0.8-4.8) 10^3/u L [place]field # (Auto) (0.2-0.9) 10^3/u L Eos # (Auto) (0.0-0.8) 10^3/u L Baso # (Auto) (0.0-0.1) 10^3/u L Nucleated RBC % (a uto) % Nucleated RBCs # /100WBC PT (12.1-14.9) SECO NDS INR (0.8-1.2) Specimen Type Sample Site ABG pH (7.35-7.45) ABG pCO2 (35-45) mmHg ABG pO2 (80.0-100.0) mmH g ABG HCO3 (22-26) mmol/L ABG O2 Saturation ABG Base Excess (-2.0-2.0) mmol/ L Theron Test A-a O2 Gradient (5-10) mmHg Hematocrit (37-47) % Hgb O2 Saturation (95-100) % Carboxyhemoglobin (0.4-20.1) %THgb Methemoglobin (0.4-1.5) % Total Hemoglobin (12-16) g/dL Ionized Calcium (1.1-1.4) mmol/L O2 Delivery Device FiO2 % Criminal Justice Lawyer ID Sodium Potassium Chloride Carbon Dioxide Anion Gap BUN Creatinine GFR Calculation Glucose POC Glucose (70-110) mg/dL Estimat Average Gl ucose Hemoglobin A1c (4.0-6.0) % Calculated Osmolal ity Calcium Phosphorus (2.5-4.5) mg/dL Magnesium Iron (37-145) ug/dL TIBC mcg/dl % Saturation (20-50) % Unsat Iron Binding (112-347) ug/dL Total Bilirubin AST ALT Alkaline Phosphata se Ammonia (11-51) umol/L Creatine Kinase Total Protein Albumin Globulin Triglycerides (0-150) mg/dL Cholesterol (0-200) mg/dL LDL Cholesterol, C alc (50-129) mg/dL Total VLDL Cholest denae (0-30) mg/dL HDL Cholesterol (60-100) mg/dL Cholesterol/HDL Ra ann marie (0.0-4.40) mg/dL Lipase Procalcitonin (0-0.5) ng/mL TSH 3.46 (0.27-4.20) uIU/ mL Urine Color Dark yellow (Yellow) Urine Appearance Sl hazy (CLEAR) Urine pH 5 (5-7) Ur Specific Gravit y 1.015 (1.005-1.030) Urine Protein Trace (Negative) Urine Glucose (UA) Norm (Normal) Urine Ketones 1+ H (Negative) Urine Blood Neg (Negative) Urine Nitrate Positive H (Negative) Urine Bilirubin 1+ H (Negative) Urine Urobilinogen 1 H (Negative) mg/dL Ur Leukocyte Maddi ase Negative (Negative) Urine RBC 0-4 H (0-2) /hpf Urine WBC 40-55 H (0-5) /hpf Ur Squamous Epith Cells 0-4 H (0-5) /hpf Amorphous Sediment Not Reportable Urine Bacteria 3+ H (NONE) /hpf Urine Mucus Trace /hpf Hepatitis A IgM Ab Non-reactive (Nonreactive) Hep Bs Antigen Non-reactive (Nonreactive) Hep Bs Antibody 3.5 L (11.5-1000) Hep B Core Total A b Non-reactive (Nonreactive) Hepatitis C Antibo dy Non-reactive (Nonreactive) 09/05/20 09/06/20 09/06/20 Range/Units 20:48 06:00 06:02 WBC (4.0-10.0) 10^3/ uL RBC (4.1-5.3) 10^6/u L Hgb (11.5-15.3) g/dL Hct (37.0-47.0) % MCV (81-99) fL MCH (28.0-34.0) pg MCHC (30.0-36.0) g/dL RDW (12.1-15.1) % Plt Count (130-400) 10^3/c mm MPV (7.4-10.4) fL Neut % (Auto) % Lymph % (Auto) % [place] % (Auto) % Eos % (Auto) % Baso % (Auto) % Neut # (Auto) (1.8-7.7) 10^3/u L Lymph # (Auto) (0.8-4.8) 10^3/u L [place]field # (Auto) (0.2-0.9) 10^3/u L Eos # (Auto) (0.0-0.8) 10^3/u L Baso # (Auto) (0.0-0.1) 10^3/u L Nucleated RBC % (a uto) % Nucleated RBCs # /100WBC PT (12.1-14.9) SECO NDS INR (0.8-1.2) Specimen Type Sample Site ABG pH (7.35-7.45) ABG pCO2 (35-45) mmHg ABG pO2 (80.0-100.0) mmH g ABG HCO3 (22-26) mmol/L ABG O2 Saturation ABG Base Excess (-2.0-2.0) mmol/ L Theron Test A-a O2 Gradient (5-10) mmHg Hematocrit (37-47) % Hgb O2 Saturation (95-100) % Carboxyhemoglobin (0.4-20.1) %THgb Methemoglobin (0.4-1.5) % Total Hemoglobin (12-16) g/dL Ionized Calcium (1.1-1.4) mmol/L O2 Delivery Device FiO2 % Criminal Justice Lawyer ID Sodium Potassium Chloride Carbon Dioxide Anion Gap BUN Creatinine GFR Calculation Glucose POC Glucose 252 H 127 H (70-110) mg/dL Estimat Average Gl ucose 88 Hemoglobin A1c 4.7 (4.0-6.0) % Calculated Osmolal ity Calcium Phosphorus (2.5-4.5) mg/dL Magnesium Iron (37-145) ug/dL TIBC mcg/dl % Saturation (20-50) % Unsat Iron Binding (112-347) ug/dL Total Bilirubin AST ALT Alkaline Phosphata se Ammonia (11-51) umol/L Creatine Kinase Total Protein Albumin Globulin Triglycerides (0-150) mg/dL Cholesterol (0-200) mg/dL LDL Cholesterol, C alc (50-129) mg/dL Total VLDL Cholest denae (0-30) mg/dL HDL Cholesterol (60-100) mg/dL Cholesterol/HDL Ra ann marie (0.0-4.40) mg/dL Lipase Procalcitonin (0-0.5) ng/mL TSH (0.27-4.20) uIU/ mL Urine Color (Yellow) Urine Appearance (CLEAR) Urine pH (5-7) Ur Specific Gravit y (1.005-1.030) Urine Protein (Negative) Urine Glucose (UA) (Normal) Urine Ketones (Negative) Urine Blood (Negative) Urine Nitrate (Negative) Urine Bilirubin (Negative) Urine Urobilinogen (Negative) mg/dL Ur Leukocyte Maddi ase (Negative) Urine RBC (0-2) /hpf Urine WBC (0-5) /hpf Ur Squamous Epith Cells (0-5) /hpf Amorphous Sediment Urine Bacteria (NONE) /hpf Urine Mucus /hpf Hepatitis A IgM Ab (Nonreactive) Hep Bs Antigen (Nonreactive) Hep Bs Antibody (11.5-1000) Hep B Core Total A b (Nonreactive) Hepatitis C Antibo dy (Nonreactive) 09/06/20 09/06/20 09/06/20 Range/Units 06:02 06:02 06:02 WBC 3.8 L (4.0-10.0) 10^3/ uL RBC 2.65 L (4.1-5.3) 10^6/u L Hgb 10.1 L (11.5-15.3) g/dL Hct 28.6 L (37.0-47.0) % MCV 107.9 H (81-99) fL MCH 38.1 H (28.0-34.0) pg MCHC 35.3 (30.0-36.0) g/dL RDW 15.7 H (12.1-15.1) % Plt Count 56 L (130-400) 10^3/c mm MPV 11.9 H (7.4-10.4) fL Neut % (Auto) 71.2 % Lymph % (Auto) 14.3 % [place] % (Auto) 11.9 % Eos % (Auto) 1.6 % Baso % (Auto) 0.5 % Neut # (Auto) 2.69 (1.8-7.7) 10^3/u L Lymph # (Auto) 0.5 L (0.8-4.8) 10^3/u L [place] # (Auto) 0.5 (0.2-0.9) 10^3/u L Eos # (Auto) 0.1 (0.0-0.8) 10^3/u L Baso # (Auto) 0.0 (0.0-0.1) 10^3/u L Nucleated RBC % (a uto) 0 % Nucleated RBCs # 0.0 /100WBC PT 21.70 H (12.1-14.9) SECO NDS INR 1.84 H (0.8-1.2) Specimen Type Sample Site ABG pH (7.35-7.45) ABG pCO2 (35-45) mmHg ABG pO2 (80.0-100.0) mmH g ABG HCO3 (22-26) mmol/L ABG O2 Saturation ABG Base Excess (-2.0-2.0) mmol/ L Theron Test A-a O2 Gradient (5-10) mmHg Hematocrit (37-47) % Hgb O2 Saturation (95-100) % Carboxyhemoglobin (0.4-20.1) %THgb Methemoglobin (0.4-1.5) % Total Hemoglobin (12-16) g/dL Ionized Calcium (1.1-1.4) mmol/L O2 Delivery Device FiO2 % Criminal Justice Lawyer ID Sodium 142 Potassium 4.1 Chloride 110 H Carbon Dioxide 26 Anion Gap 10.1 BUN 11 Creatinine 0.7 GFR Calculation Not Reportable Glucose 124 H POC Glucose (70-110) mg/dL Estimat Average Gl ucose Hemoglobin A1c (4.0-6.0) % Calculated Osmolal ity 295 Calcium 7.6 L Phosphorus 2.0 L (2.5-4.5) mg/dL Magnesium 1.6 L Iron (37-145) ug/dL TIBC mcg/dl % Saturation (20-50) % Unsat Iron Binding (112-347) ug/dL Total Bilirubin 3.3 H AST 63 H ALT 9 Alkaline Phosphata se 190 H Ammonia (11-51) umol/L Creatine Kinase Total Protein 6.8 Albumin 2.2 L Globulin 4.6 Triglycerides 51 (0-150) mg/dL Cholesterol 94 (0-200) mg/dL LDL Cholesterol, C alc 47 L (50-129) mg/dL Total VLDL Cholest denae 10 (0-30) mg/dL HDL Cholesterol 37 L (60-100) mg/dL Cholesterol/HDL Ra ann marie 2.54 (0.0-4.40) mg/dL Lipase Procalcitonin (0-0.5) ng/mL TSH (0.27-4.20) uIU/ mL Urine Color (Yellow) Urine Appearance (CLEAR) Urine pH (5-7) Ur Specific Gravit y (1.005-1.030) Urine Protein (Negative) Urine Glucose (UA) (Normal) Urine Ketones (Negative) Urine Blood (Negative) Urine Nitrate (Negative) Urine Bilirubin (Negative) Urine Urobilinogen (Negative) mg/dL Ur Leukocyte Maddi ase (Negative) Urine RBC (0-2) /hpf Urine WBC (0-5) /hpf Ur Squamous Epith Cells (0-5) /hpf Amorphous Sediment Urine Bacteria (NONE) /hpf Urine Mucus /hpf Hepatitis A IgM Ab (Nonreactive) Hep Bs Antigen (Nonreactive) Hep Bs Antibody (11.5-1000) Hep B Core Total A b (Nonreactive) Hepatitis C Antibo dy (Nonreactive) 09/06/20 09/06/20 Range/Units 11:16 16:43 WBC (4.0-10.0) 10^3/ uL RBC (4.1-5.3) 10^6/u L Hgb (11.5-15.3) g/dL Hct (37.0-47.0) % MCV (81-99) fL MCH (28.0-34.0) pg MCHC (30.0-36.0) g/dL RDW (12.1-15.1) % Plt Count (130-400) 10^3/c mm MPV (7.4-10.4) fL Neut % (Auto) % Lymph % (Auto) % [place] % (Auto) % Eos % (Auto) % Baso % (Auto) % Neut # (Auto) (1.8-7.7) 10^3/u L Lymph # (Auto) (0.8-4.8) 10^3/u L [place]field # (Auto) (0.2-0.9) 10^3/u L Eos # (Auto) (0.0-0.8) 10^3/u L Baso # (Auto) (0.0-0.1) 10^3/u L Nucleated RBC % (a uto) % Nucleated RBCs # /100WBC PT (12.1-14.9) SECO NDS INR (0.8-1.2) Specimen Type Sample Site ABG pH (7.35-7.45) ABG pCO2 (35-45) mmHg ABG pO2 (80.0-100.0) mmH g ABG HCO3 (22-26) mmol/L ABG O2 Saturation ABG Base Excess (-2.0-2.0) mmol/ L Theron Test A-a O2 Gradient (5-10) mmHg Hematocrit (37-47) % Hgb O2 Saturation (95-100) % Carboxyhemoglobin (0.4-20.1) %THgb Methemoglobin (0.4-1.5) % Total Hemoglobin (12-16) g/dL Ionized Calcium (1.1-1.4) mmol/L O2 Delivery Device FiO2 % Criminal Justice Lawyer ID Sodium Potassium Chloride Carbon Dioxide Anion Gap BUN Creatinine GFR Calculation Glucose POC Glucose 206 H 178 H (70-110) mg/dL Estimat Average Gl ucose Hemoglobin A1c (4.0-6.0) % Calculated Osmolal ity Calcium Phosphorus (2.5-4.5) mg/dL Magnesium Iron (37-145) ug/dL TIBC mcg/dl % Saturation (20-50) % Unsat Iron Binding (112-347) ug/dL Total Bilirubin AST ALT Alkaline Phosphata se Ammonia (11-51) umol/L Creatine Kinase Total Protein Albumin Globulin Triglycerides (0-150) mg/dL Cholesterol (0-200) mg/dL LDL Cholesterol, C alc (50-129) mg/dL Total VLDL Cholest denae (0-30) mg/dL HDL Cholesterol (60-100) mg/dL Cholesterol/HDL Ra ann marie (0.0-4.40) mg/dL Lipase Procalcitonin (0-0.5) ng/mL TSH (0.27-4.20) uIU/ mL Urine Color (Yellow) Urine Appearance (CLEAR) Urine pH (5-7) Ur Specific Gravit y (1.005-1.030) Urine Protein (Negative) Urine Glucose (UA) (Normal) Urine Ketones (Negative) Urine Blood (Negative) Urine Nitrate (Negative) Urine Bilirubin (Negative) Urine Urobilinogen (Negative) mg/dL Ur Leukocyte Maddi ase (Negative) Urine RBC (0-2) /hpf Urine WBC (0-5) /hpf Ur Squamous Epith Cells (0-5) /hpf Amorphous Sediment Urine Bacteria (NONE) /hpf Urine Mucus /hpf Hepatitis A IgM Ab (Nonreactive) Hep Bs Antigen (Nonreactive) Hep Bs Antibody (11.5-1000) Hep B Core Total A b (Nonreactive) Hepatitis C Antibo dy (Nonreactive) Discharge Plan Discharge Patient Disposition: Admitted As Inpatient Admit Provider: Bishnu Nuñez Clinical Impression: Delirium due to general medical condition, UTI (urinary tract infection), Encephalopathy, hepatic, Cirrhosis of liver, Hypokalemia, Diabetes Condition: Stable Discharge Diet: Regular Discharge Activity: Resume usual activity Coding Level of Care Code ED Leather Patcher for Chg Fwd Exam Comprehensive
[2020-09-05 14:00] LABS: Ammonia 52 umol/L (11-51)
[2020-09-05 14:04] LABS: Alanine Aminotransferase 6 U/L (0-33); Albumin Level 2.6 g/dL (3.5-5.2); Alkaline Phosphatase 253 IU/L (35-105); Anion Gap 11.8 (5-19); Aspartate Amino Transferase 61 U/L (0-32); Blood Urea Nitrogen 14 mg/dL (8-23); Calcium 8.2 mg/dL (8.5-10.5); Carbon Dioxide 28 mmol/L (22-29); Chloride 100 mmol/L (98-107); Creatine Phosphokinase 171 U/L (26-192); Globulin 5.7 g/dL (1.3-4.6); Glucose 155 mg/dL (65-115); Lipase 58 U/L (13-60); Magnesium 1.7 mg/dL (1.7-2.3); Osmolality Calculated 288 mOsm/kg (285-295); Sodium 137 mmol/L (136-145); Total Bilirubin 4.2 mg/dL (0.15-1.2); Total Protein 8.3 g/dL (6.6-8.7)
[2020-09-05 14:16] LABS: Potassium 2.8 mmol/L (3.5-5.1)
[2020-09-05 14:18] LABS: Blood Urine Neg (Negative); Glucose Urine UA Norm (Normal); Ketones Urine 1+ (Negative); Protein Urine Trace (Negative); Specific Gravity, Urine 1.015 (1.005-1.030); Urine Appearance SL Hazy (CLEAR); Urine Color Dark Yellow (Yellow); pH Urine 5 (5-7)
[2020-09-05 14:19] LABS: Add Urine Microscopic? YES; Bilirubin Urine 1+ (Negative); Leukocyte Esterase Urine Negative (Negative); Nitrate Urine Positive (Negative); Urobilinogen Urine 1 mg/dL (Negative)
[2020-09-05 14:43] LABS: Bacteria Urine 3+ /hpf; RBC Urine 0-4 /hpf (0-2); Squamous Epithelial Cell Urine 0-4 /hpf (0-5); WBC Urine 40-55 /hpf (0-5)
[2020-09-05 14:44] LABS: Add Urine Culture? Yes; Mucus Urine TRACE /hpf
[2020-09-05] MEDS: cefTRIAXone 1,000 MG in sodium chloride 0.9% (plus) 50 ML 100 MG IV (15:42)
[2020-09-05] MEDS: lidocaine 1% 5 ML in potassium chloride premix 100 ML 25 ML IV (15:48)
[2020-09-05] MEDS: D5-NS 0.45% + KCL 20 mEq 20 MEQ/1,000 ML BAG 100 MEQ IV (17:54)
--- NOTE | 2020-09-05 18:16 | P.HP_ITS ---
Providers/Chief Complaint Admitting Physician: Bishnu Nuñez MD Primary Care Provider: Dmitry Hogan Chief Complaint: AMS History of Present Illness Karol Hickey is a 74 year old female with past medical history of lze-[id number] type 2 diabetes mellitus, hypertension, diastolic heart failure, liver cirrhosis, hepatitis C who presented to the ER today with her son because of feeling weak and disoriented early in the morning today. Last known normal for her was yesterday in the afternoon when son had spoken to her. As per the son who is at bedside patient has not been taking her lactulose for many weeks as she is been confusing that with Metamucil. Patient states it is no direct history of lactulose so she is taking Metamucil instead. She denies any vomiting though has constant nausea most likely from her history of liver cirrhosis. Denies any fever, dysuria, diarrhea, headache, changes in her vision, fevers, difficulty breathing, weakness in any of her arms or legs. Patient is to follow-up with liver specialist up in [place] on September 27. She follows up with a gallbladder specialist at [facility] who had advised her to have a gallbladder surgery after she has seen her bituminous distributor operator. Blood work in the ER showed a white 24.8, hemoglobin of 11.9, platelet count of 63,000, pH of 7.53 on ABG, PCO2 34.7, PO2 of 5075.4, CMP showing a sodium of 137, potassium of 2.8, creatinine of 0.7, calcium of 8.2, total bilirubin of 4.2, AST of 61, alkaline phosphatase of 253, ammonia levels of 52, UA showing positive nitrate, negative leuk esterase with 40-65 WBCs. Review of Systems General: Reports: 10 or more systems reviewed and unremarkable except in HPI and below Const: Denies: fever(s), chills, body aches, change in appetite, change in weight, malaise, night sweats, diaphoresis, change in sleep pattern, daytime sleepiness or snoring Eyes: Denies: change in vision, blurry vision, photophobia, eye discomfort or eye discharge ENMT: Denies: throat pain, enlarged tonsils, hoarseness, mouth pain, oral sores, dry mouth, tinnitus, nasal congestion or post nasal drip Card: Denies: chest pain, palpitations, irregular heart rhythm, edema, swelling of feet/ankles, lightheadedness, syncope, pre-syncope, dyspnea on exertion, orthopnea, leg pain with exertion or acrocyanosis Resp: Denies: dyspnea, productive cough, non-productive cough, wheezing, stridor, pain on inspiration, change in phlegm color, hemoptysis or chest congestion GI: Denies: abdominal pain, nausea, vomiting, hematemesis, coffee ground emesis, dysphagia, heartburn, diarrhea, constipation, bloating, GI cramping, change in bowel habits, pain on defecation, hematochezia or melena : Denies: flank pain, dysuria, urinary frequency, urinary urgency, urinary hesitancy, nocturia or hematuria Musc: Denies: neck pain, back pain, extremity pain, joint pain, joint swelling, joint redness, joint stiffness or limited range of motion Neuro: Denies: headache(s), numbness in extremities, weakness in extremities, sensory changes, lack of coordination, difficulty walking, frequent falls, di zziness, vertigo, confusion, Slurred speech present, difficulty communicating thoughts or seizure-like activity Psych: Denies: anxiety, depression, mood swings, panic attacks, hopelessness or irritability Endo: Denies: polyuria, polydipsia, tired all the time, cold intolerance, excessive sweating, flushing or heat intolerance Moe/Lymph: Denies: easy bruising or easy bleeding All/Imm: Denies: tongue swelling, facial swelling or acute wheezing Medications/Allergies Home Medications Medication Instructions Recorded Confirmed Last Taken Type furosemide [Lasix] 40 mg PO DAILY 09/05/20 09/05/20 Unknown History lactulose 20 g PO BID PRN 09/05/20 09/05/20 Unknown History ondansetron HCl [Zofran] 4 mg PO Q8H PRN 09/05/20 09/05/20 Unknown History pantoprazole 40 mg PO BID 09/05/20 09/05/20 Unknown History promethazine 12.5 mg PO Q6H PRN 09/05/20 09/05/20 Unknown History spironolactone 100 mg PO DAILY 09/05/20 09/05/20 Unknown History sulfasalazine 500 mg PO BID 09/05/20 09/05/20 Unknown History Allergies Allergy/AdvReac Type Severity Reaction Status Date / Time No Known Allergies Allergy Unverified 10/31/19 10:43 PFSH Acute PFSH: Medical History (Updated 09/05/20 @ 18:32 by Watson Trivedi MD) Diabetes mellitus Diastolic heart failure Hepatitis C HTN (hypertension) Hyperlipidemia Ulcerative colitis Surgical History (Updated 09/05/20 @ 18:27 by Watson Trivedi MD) S/P bladder repair S/P hip replacement S/P knee surgery Family History Denies family history of Anesthesia complication Bleeding disorder Social History (Updated 09/05/20 @ 18:28 by Watson Trivedi MD) Smoking and tobacco status: never smoked Alcohol intake: never Lives independently: Yes Household members: none Housing: House Vitals/I&O/Wt Last Vital Signs Temp 97.0 F L 09/05/20 12:15 Pulse 84 09/05/20 16:49 Resp 20 H 09/05/20 16:49 BP 155/72 09/05/20 16:49 Pulse Ox 95 09/05/20 16:49 09/05/20 09/05/20 09/05/20 06:59 14:59 22:59 Intake Total 50 / 50 Balance 50 / 50 Weight last 48 hrs Weight 72.575 kg Physical Exam Narrative: EXAM NARRATIVE: General: No acute distress, AO x3, icterus present, well hydrated HEENT: PERRLA, pupils bilaterally equal and reactive Chest: Normal vesicular breath sounds, no added sounds, equal good air entry bilaterally CVS: S1-S2 regular, no murmurs, no tachycardia, no gallops, no rubs Abdomen: Soft, nontender, no organomegaly, bowel sounds present Neuro: No focal deficits, no facial deformity, AO x3, power 5/5 in all limbs Data : 09/05/20 11:00 09/05/20 13:35 Micro: Microbiology 09/05/20 15:35 Blood Culture - Preliminary Blood SPECIMEN COLLECTED 09/05/20 13:35 Blood Culture - Preliminary Blood SPECIMEN COLLECTED A&P Assessment and plan (1) Metabolic encephalopathy: Status: Acute (2) Liver cirrhosis: Status: Acute Qualifiers: Hepatic cirrhosis type: unspecified hepatic cirrhosis Ascites presence: with ascites Qualified Code(s): K74.60 - Unspecified cirrhosis of liver; R18.8 - Other ascites (3) Diastolic heart failure: Status: Acute Qualifiers: Heart failure chronicity: chronic Qualified Code(s): I50.32 - Chronic diastolic (congestive) heart failure (4) HTN (hypertension): Status: Acute Qualifiers: Hypertension type: essential hypertension Qualified Code(s): I10 - Essential (primary) hypertension (5) Diabetes mellitus: Status: Acute (6) Hypokalemia: Status: Acute Additional A&P Information 74 old female past medical history of liver cirrhosis, hepatitis C, diastolic heart failure presents to the ER for feeling weak and altered early in the morning today with not been taking her lactulose for couple of weeks. Metabolic encephalopathy most likely hepatic in etiology: Likely etiology hepatic in nature as patient has been missing her lactulose. No sign of VEGETABLE INSPECTOR infection at present though patient does have possible UTI with positive nitrates on urinalysis. Abdomen benign on examination so gallbladder pathology is unlikely as well. Check procalcitonin, blood culture, MRSA swab, urine culture, urine Legionella, TSH, drug screen, hepatitis panel. Continue ceftriaxone started in the ER. Add Flagyl [address] abdomen pelvis with contrast. Start patient on lactulose 10 mg p.o. 3 times daily. Will uptitrate for patient to have at least 2-4 good bowel movements a day. Discussed in detail with patient regarding need for lactulose to prevent hepatic encephalopathy. We will request documentations from patient's gallbladder surgeon at [facility]. D5 half NS at 20 mEq potassium at 75 cc/h. Will monitor for fluid overload. Hypokalemia: Replete potassium with 80 mEq oral. We will repeat potassium in morning. Type 2 diabetes mellitus: Insulin settings were at mild dose. Hypertension: Blood pressure less than 140/90mmhg. Will monitor blood pressures and if needed can add propranolol. CODE STATUS: Discussed with patient in detail with son at bedside. She would not want any life prolonging measures including chest compressions. Allow natural . Cardiac diet. Heparin for DVT prophylaxis Attestations Medical Necessity Statement*: Admission for less than 2 midnights for metabolic encephalopathy most likely hepatic in etiology because of missing la ctulose dose. Time Spent in Patient Care: Greater than 35 minutes (>than 50% of time spent in counselling and/or direct pt care on unit) . Coding Level of Care Code Acute Chemical Plant Operator for Chg Fwd Diagnoses Metabolic encephalopathy G93.41 Liver cirrhosis K74.60; R18.8 Hepatic cirrhosis type: unspecified hepatic cirrhosis Ascites presence: with ascites Diastolic heart failure I50.32 Heart failure chronicity: chronic HTN (hypertension) I10 Hypertension type: essential hypertension Diabetes mellitus E11.9 Hypokalemia E87.6
--- NOTE | 2020-09-05 18:17 | CTR_ITS ---
PROCEDURE INFORMATION: Exam: CT Abdomen And Pelvis With Contrast Exam date and time: 09/05/2020 7:15 PM Age: 74 years old Clinical indication: Condition or disease; Liver condition; Cirrhosis; Prior surgery; Surgery type: Hyst, hip; Additional info: Liver cirrhosis, AMS, gall bladder pathology TECHNIQUE: Imaging protocol: Computed tomography of the abdomen and pelvis with contrast. Radiation optimization: All CT scans at this facility use at least one of these dose optimization techniques: automated exposure control; mA and/or kV adjustment per patient size (includes targeted exams where dose is matched to clinical indication); or iterative reconstruction. Contrast material: OMNI 300; Contrast volume: 95 ml; Contrast route: INTRAVENOUS (IV); COMPARISON: CT abdomen pelvis wo con [id number] 07/07/2020 12:20 PM RADIATION DOSE METRICS: Total DLP (mGy-cm): 1796.58 FINDINGS: Lungs: Segmental right basilar atelectasis. Pleural spaces: Small right pleural effusion. Liver: Cirrhotic liver morphology. A subtle 1.5 cm hypodensity in the left hepatic lobe. Gallbladder and bile ducts: Multiple small calcified gallstones. No signs of acute cholecystitis. No biliary dilatation. Pancreas: No evidence of mass. No ductal dilation. Spleen: The spleen is mildly enlarged. Adrenal glands: Normal. Kidneys and ureters: A subcentimeter simple cyst present in both kidneys. The kidneys are otherwise normal in appearance. Stomach and bowel: No evidence of obstruction. No focal bowel wall thickening or mass. No significant diverticula. Appendix: No evidence of appendicitis. Intraperitoneal space: No free air. No free fluid or evidence of abscess. Vasculature: Multiple splenic varices. Scattered arterial calcifications. Lymph nodes: No lymphadenopathy. Urinary bladder: Normal CT appearance. Reproductive: Normal CT appearance for age. Bones/joints: The bones are demineralized. Moderate degenerative changes of the spine. No acute osseous abnormality. Left hip total arthroplasty. Soft tissues: Within normal limits. CT/CT abdomen pelvis w con* [id number] IMPRESSION: 1. Small right pleural effusion. Associated segmental right basilar atelectasis. 2. Cirrhotic liver with splenic varices and splenomegaly. 3. A subtle 1.5 cm hypodensity in the left hepatic lobe is indeterminate on this exam. It can be fully investigated with MRI or multiphase contrast-enhanced CT. COMMENTS: Consistent with the [employer]'s Incidental Findings Committee white paper (J Am Sanjana Radiol 2018): Any incidental renal lesion less than 1 cm or classified as too small to characterize, or any incidental cystic renal lesion characterized as simple-appearing, is likely benign. No follow-up imaging is recommended for these lesions per consensus recommendations based on imaging criteria. Radiation Dose CTDIVOL = (mGy): DLP = 1796.58 (mGy-cm)
[2020-09-05] MEDS: potassium chloride oral liq 20 mEq/15 mL UDC 80 MEQ PO (18:41)
[2020-09-05] MEDS: heparin 5,000 unit/mL INJ 1 mL 5000 UNIT SUBCUT (18:41)
[2020-09-05 19:29] LABS: Procalcitonin 0.26 ng/mL (0-0.5)
[2020-09-05 19:30] LABS: Thyroid Stimulating Hormone 3.46 uIU/mL (0.27-4.20)
[2020-09-05] MEDS: famotidine 20 mg/2 mL INJ IVP (19:41)
[2020-09-05 19:44] LABS: Hepatitis A Antibody IgM Non-Reactive (Nonreactive); Hepatitis B Core AB, Total Non-Reactive (Nonreactive); Hepatitis B Surface AB 3.5 (11.5-1000); Hepatitis B Surface Antigen Non-Reactive (Nonreactive); Hepatitis C Virus Antibody Non-Reactive (Nonreactive)
[2020-09-05] MEDS: iohexol 300 mg/mL 100 mL Btl IV (20:08)
[2020-09-05 20:53] LABS: Glucose Point of Care 252 mg/dL (70-110)
[2020-09-05] MEDS: lactulose oral liq 20 gm/30 mL UDC 10 GM PO (21:25)
[2020-09-05 22:56] LABS: Iron 107 ug/dL (37-145); Percent Saturation 60.7 % (20-50); Total Iron Binding Capacity 176 mcg/dl; Unsaturated Iron Binding 69 ug/dL (112-347)
[2020-09-06] VITALS (17 sets, daily range): BP systolic 113–137; BP diastolic 64–74; PULSE 70–107; RESP 16–18; TEMP 36.5–37.2; O2SAT 92–96
[2020-09-06] MEDS: heparin 5,000 unit/mL INJ 1 mL 5000 UNIT SUBCUT ×3 (01:40→17:05)
[2020-09-06] MEDS: metroNIDAZOLE IV 500 MG/100 ML PREMIX 100 MG IV ×3 (01:40→17:05)
[2020-09-06] MEDS: D5-NS 0.45% + KCL 20 mEq 20 MEQ/1,000 ML BAG 100 MEQ IV (03:37)
[2020-09-06] MEDS: ipratropium-albuterol 3 mL Neb INHALATION ×4 (03:42→20:00)
[2020-09-06 06:19] LABS: Glucose Point of Care 127 mg/dL (70-110)
[2020-09-06] MEDS: famotidine 20 mg/2 mL INJ IVP ×2 (06:24→17:04)
[2020-09-06 07:04] LABS: Basophils % 0.5 %; Eosinophils # 0.1 10^3/uL (0.0-0.8); Eosinophils % 1.6 %; Hematocrit 28.6 % (37.0-47.0); Hemoglobin 10.1 g/dL (11.5-15.3); Lymphocytes # 0.5 10^3/uL (0.8-4.8); Lymphocytes % 14.3 %; Mean Corpuscular HGB Conc 35.3 g/dL (30.0-36.0); Mean Corpuscular Hemoglobin 38.1 pg (28.0-34.0); Mean Corpuscular Volume 107.9 fL (81-99); Mean Platelet Volume 11.9 fL (7.4-10.4); Monocytes # 0.5 10^3/uL (0.2-0.9); Monocytes % 11.9 %; Neutrophils # 2.69 10^3/uL (1.8-7.7); Neutrophils % 71.2 %; Nucleated Red Blood Cells % 0 %; Platelet Count 56 10^3/cmm (130-400); Red Blood Count 2.65 10^6/uL (4.1-5.3); Red Cell Distribution Width 15.7 % (12.1-15.1); White Blood Count 3.8 10^3/uL (4.0-10.0)
[2020-09-06 07:13] LABS: INR 1.84 (0.8-1.2)
[2020-09-06 07:25] LABS: Alanine Aminotransferase 9 U/L (0-33); Albumin Level 2.2 g/dL (3.5-5.2); Alkaline Phosphatase 190 IU/L (35-105); Anion Gap 10.1 (5-19); Aspartate Amino Transferase 63 U/L (0-32); Blood Urea Nitrogen 11 mg/dL (8-23); Calcium 7.6 mg/dL (8.5-10.5); Carbon Dioxide 26 mmol/L (22-29); Chloride 110 mmol/L (98-107); Chol HDL Ratio 2.54 mg/dL (0.0-4.40); Cholesterol 94 mg/dL (0-200); Globulin 4.6 g/dL (1.3-4.6); Glucose 124 mg/dL (65-115); HDL Cholesterol 37 mg/dL (60-100); LDL Cholesterol Calculated 47 mg/dL (50-129); Magnesium 1.6 mg/dL (1.7-2.3); Osmolality Calculated 295 mOsm/kg (285-295); Potassium 4.1 mmol/L (3.5-5.1); Sodium 142 mmol/L (136-145); Total Bilirubin 3.3 mg/dL (0.15-1.2); Total Protein 6.8 g/dL (6.6-8.7); Triglycerides 51 mg/dL (0-150); VLDL Cholestrol Calculation 10 mg/dL (0-30)
[2020-09-06 07:46] LABS: Estmated Average Glucose 88; Hemoglobin A1C 4.7 % (4.0-6.0)
[2020-09-06] MEDS: lactulose oral liq 20 gm/30 mL UDC 10 GM PO (08:18)
[2020-09-06] MEDS: sulfaSALAzine 500 mg Tablet PO ×2 (08:22→17:04)
[2020-09-06] MEDS: lactulose oral liq 20 gm/30 mL UDC PO (11:22)
[2020-09-06 11:26] LABS: Glucose Point of Care 206 mg/dL (70-110)
--- NOTE | 2020-09-06 12:12 | PC.CHAP ---
Pastoral Care Encounter/Spiritual Assessment Type of Contact [] Declined store deli manager visit [] Patient/Family/Request visit [] Outpatient visit [] Follow-up visit [] Physician referral [] Code/Alert [XX] Routine visit [] Staff referral [] Actively dying [] Patient sleeping [] Family support [] [] Out of room [] Palliative care [] [] Receiving care in room [] Pre-surgical visit [] Trauma [] Long length of stay [] ICU visit [] Other: Relational/Emotional Strength [XX] Patient feels connected with others/family/visitors/staff [] Distress [] Loneliness/isolation [] Abandonment Spirituality of Patient [XX] Person of Tiffany [] Attends Rastafari of their Tiffany [XX] Believes in Prayer [] Reads Bible or Buddhist materials [] There are Spiritual issues to be addressed Institution Librarian Interventions [XX] Prayer [XX] Active listening [XX] Non-anxious presence [] Spiritual/emotional support [] Crisis/trauma care [] Spiritual counseling [] Bereavement support [] Provided bereavement packet [] Provided Bible/devotional materials [] Provided toy/stuffed animal, coloring book to patient or family member [] Provided Communion [] Anointing/[place] [] Salvation [XX] Completed spiritual assessment [] Other: Impact on Illness or Injury [] Angry [] Fearful [] Anxious [] Often cries [] Exhaustion [] Unable to work [] Unable to attend sikh [] Unable to walk/stand [] Unable to read [] Unable to drive [] Unable to eat/drink [] Unable to sleep [] Unable to be with family [] Patient intubated [] Other: Summary: Pt shared her story of passing out and being found by her son. She states that she passed out because there is an awful-tasting medicine that she stopped taking (due to the taste). Pt is fiesty! She has good support system and wants to return home. Time spent with patient: 20 mins
--- NOTE | 2020-09-06 12:47 | P.PN_ITS ---
Subjective Subjective: Interval history: No acute events overnight. Patient sitting comfortably in chair in examination. Worked well with physical therapy today. Is a lot more alert and oriented as compared to yesterday. She is still not had any bowel movements. Took her lactulose. Vitals/I&O/Wt Last Vital Signs Temp 98.0 F 09/06/20 11:25 Pulse 81 09/06/20 11:25 Resp 17 09/06/20 11:25 BP 127/74 09/06/20 11:25 Pulse Ox 95 09/06/20 11:25 09/05/20 09/06/20 09/06/20 22:59 06:59 14:59 Intake Total 155 / 155 1071.667 / 1226.667 700 / 700 Output Total 100 / 100 300 / 400 240 / 240 Balance 55 / 55 771.667 / 826.667 460 / 460 Weight last 48 hrs Weight 85.729 kg Weight 72.575 kg Physical Exam Narrative: EXAM NARRATIVE: General: No acute distress, AO x3, icterus present, well hydrated HEENT: PERRLA, pupils bilaterally equal and reactive Chest: Normal vesicular breath sounds, no added sounds, equal good air entry b ilaterally CVS: S1-S2 regular, no murmurs, no tachycardia, no gallops, no rubs Abdomen: Soft, nontender, no organomegaly, bowel sounds present Neuro: No focal deficits, no facial deformity, AO x3, power 5/5 in all limbs Data : 09/06/20 06:02 09/06/20 06:02 Micro: Microbiology 09/05/20 15:35 Blood Culture - Preliminary Blood SPECIMEN COLLECTED 09/05/20 13:35 Blood Culture - Preliminary Blood SPECIMEN COLLECTED A&P Assessment and plan (1) Metabolic encephalopathy: Status: Acute (2) Liver cirrhosis: Status: Acute Qualifiers: Ascites presence: with ascites Hepatic cirrhosis type: unspecified hepatic cirrhosis Qualified Code(s): K74.60 - Unspecified cirrhosis of liver; R18.8 - Other ascites (3) UTI (urinary tract infection): Status: Acute (4) Diastolic heart failure: Status: Acute Qualifiers: Heart failure chronicity: chronic Qualified Code(s): I50.32 - Chronic diastolic (congestive) heart failure (5) HTN (hypertension): Status: Acute Qualifiers: Hypertension type: essential hypertension Qualified Code(s): I10 - Essential (primary) hypertension (6) Diabetes mellitus: Status: Acute (7) Hypokalemia: Status: Acute Additional A&P Information 74 old female past medical history of liver cirrhosis, diastolic heart failure presents to the ER for feeling weak and altered early in the morning today with not been taking her lactulose for couple of weeks. Metabolic encephalopathy most likely hepatic in etiology: Likely etiology hepatic in nature as patient has been missing her lactulose along with UTI. CT abdomen results appreciated and consistent with splenic varices and splenomegaly and subtle 1.5 cm hypodensity in left hepatic lobe. No active signs of cholecystitis or cholangitis. Pro-[place] negative, MRSA negative, urine culture and blood culture pending. Urine Legionella, TSH appreciated. For now continue with ceftriaxone and Flagyl. Increase lactulose to 30 mg 3 times daily for now. Patient has a good bowel movement can switch it over to as needed. We will uptitrate the dose and frequency. Patient has 2-4 good bowel movements a day. D5 half NS at 20 mEq potassium at 50 cc/h. Will monitor for fluid overload. UTI: Mildly symptomatic. Urine culture growing gram-negative rods. Continue with ceftriaxone for now. Hypokalemia: Resolved. Type 2 diabetes mellitus: A1c 4.7. Stop insulin sliding scale. Hypertension: Blood pressure less than 140/90mmhg. Will monitor blood pressures and if needed can add propranolol. Blood work for iron panel, lipid panel, A1c, TSH appreciated. CODE STATUS: Discussed with patient in detail with son at bedside. She would not want any life prolonging measures including chest compressions. Allow natural . Cardiac diet. Heparin for DVT prophylaxis Discharge planning: Discussed in detail with son at bedside yesterday and patient today. Patient would like to go home. She states she is planning to go and live with her sisters for now to regain strength. If she is not able to then she is okay with going to home with home health. Attestations Medical Necessity Statement*: Requires further hospitalization for metabolic encephalopathy because of combination of elevated ammonia levels and UTI. Time Spent in Patient Care: Greater than 35 minutes (>than 50% of time spent in counselling and/or direct pt care on unit) . Coding Level of Care Code Acute Type Disk Quality Control Supervisor for [place] Diagnoses Metabolic encephalopathy G93.41 Liver cirrhosis K74.60; R18.8 Ascites presence: with ascites Hepatic cirrhosis type: unspecified hepatic cirrhosis UTI (urinary tract infection) N39.0 Diastolic heart failure I50.32 Heart failure chronicity: chronic HTN (hypertension) I10 Hypertension type: essential hypertension Diabetes mellitus E11.9 Hypokalemia E87.6
[2020-09-06] MEDS: D5-NS 0.45% + KCL 20 mEq 20 MEQ/1,000 ML BAG 50 MEQ IV (16:28)
[2020-09-06] MEDS: cefTRIAXone 1,000 MG in sodium chloride 0.9% (plus) 50 ML 100 MG IV (16:28)
[2020-09-06 16:51] LABS: Glucose Point of Care 178 mg/dL (70-110)
[2020-09-06 20:32] LABS: Glucose Point of Care 156 mg/dL (70-110)
[2020-09-07] VITALS (10 sets, daily range): BP systolic 126–144; BP diastolic 68–82; PULSE 77–872; RESP 16–18; TEMP 36.8–37.3; O2SAT 90–94
[2020-09-07] MEDS: heparin 5,000 unit/mL INJ 1 mL 5000 UNIT SUBCUT ×2 (01:27→10:07)
[2020-09-07] MEDS: metroNIDAZOLE IV 500 MG/100 ML PREMIX 100 MG IV ×2 (01:27→08:33)
[2020-09-07] MEDS: ipratropium-albuterol 3 mL Neb INHALATION ×2 (02:34→08:13)
[2020-09-07] MEDS: famotidine 20 mg/2 mL INJ IVP (06:18)
[2020-09-07 06:22] LABS: Basophils % 0.8 %; Eosinophils # 0.1 10^3/uL (0.0-0.8); Eosinophils % 2.5 %; Hematocrit 30.9 % (37.0-47.0); Hemoglobin 10.6 g/dL (11.5-15.3); Lymphocytes # 0.6 10^3/uL (0.8-4.8); Lymphocytes % 14.4 %; Mean Corpuscular HGB Conc 34.3 g/dL (30.0-36.0); Mean Corpuscular Hemoglobin 38.1 pg (28.0-34.0); Mean Corpuscular Volume 111.2 fL (81-99); Mean Platelet Volume 11.5 fL (7.4-10.4); Monocytes # 0.4 10^3/uL (0.2-0.9); Monocytes % 9.6 %; Neutrophils # 2.86 10^3/uL (1.8-7.7); Neutrophils % 71.9 %; Nucleated Red Blood Cells % 0 %; Platelet Count 54 10^3/cmm (130-400); Red Blood Count 2.78 10^6/uL (4.1-5.3)
[2020-09-07 06:31] LABS: Glucose Point of Care 126 mg/dL (70-110)
[2020-09-07 06:45] LABS: Ammonia 49 umol/L (11-51)
[2020-09-07 06:53] LABS: Alanine Aminotransferase 17 U/L (0-33); Albumin Level 2.3 g/dL (3.5-5.2); Alkaline Phosphatase 204 IU/L (35-105); Anion Gap 10.2 (5-19); Aspartate Amino Transferase 69 U/L (0-32); Blood Urea Nitrogen 10 mg/dL (8-23); Calcium 7.6 mg/dL (8.5-10.5); Carbon Dioxide 22 mmol/L (22-29); Chloride 107 mmol/L (98-107); Glucose 120 mg/dL (65-115); Osmolality Calculated 280 mOsm/kg (285-295); Potassium 4.2 mmol/L (3.5-5.1); Sodium 135 mmol/L (136-145); Total Bilirubin 3.7 mg/dL (0.15-1.2); Total Protein 7.3 g/dL (6.6-8.7)
[2020-09-07] MEDS: lactulose oral liq 20 gm/30 mL UDC 30 GM PO (08:29)
[2020-09-07] MEDS: sulfaSALAzine 500 mg Tablet PO (08:33)
[2020-09-07 11:13] LABS: Glucose Point of Care 215 mg/dL (70-110)
--- NOTE | 2020-09-07 12:15 | PM.DCS ---
Discharge Providers Date of Admission: 09/06/20 18:14 Date of Discharge: September 07, 2020 Attending Provider at Admission: Bishnu Nuñez MD Attending Provider at Discharge: Watson Trivedi MD Primary Care Provider: Dmitry Hogan Diagnoses at Discharge Discharge Diagnosis (1) Metabolic encephalopathy: Status: Acute (2) Liver cirrhosis: Status: Acute Qualifiers: Hepatic cirrhosis type: unspecified hepatic cirrhosis Ascites presence: with ascites Qualified Code(s): K74.60 - Unspecified cirrhosis of liver; R18.8 - Other ascites (3) UTI (urinary tract infection): Status: Acute (4) Diastolic heart failure: Status: Acute Qualifiers: Heart failure chronicity: chronic Qualified Code(s): I50.32 - Chronic diastolic (congestive) heart failure (5) HTN (hypertension): Status: Acute Qualifiers: Hypertension type: essential hypertension Qualified Code(s): I10 - Essential (primary) hypertension (6) Diabetes mellitus: Status: Acute (7) Hypokalemia: Status: Acute Reason for Visit Reason for Visit: [facility] Hospital Course Hospital Course Karol Hickey is a 74 year old female with past medical history of [id number] type 2 diabetes mellitus, hypertension, diastolic heart failure, liver cirrhosis, hepatitis C who presented to the ER today with her son because of feeling weak and disoriented early in the morning today. Last known normal for her was yesterday in the afternoon when son had spoken to her. As per the son who is at bedside patient has not been taking her lactulose for many weeks as she is been confusing that with Metamucil. Patient states it is no direct history of lactulose so she is taking Metamucil instead. She denies any vomiting though has constant nausea most likely from her history of liver cirrhosis. Denies any fever, dysuria, diarrhea, headache, changes in her vision, fevers, difficulty breathing, weakness in any of her arms or legs. Patient is to follow-up with liver specialist up in [place] on September 27. She follows up with a gallbladder specialist at [facility] who had advised her to have a gallbladder surgery after she has seen her manufacturing controller. Blood work in the ER showed a white 24.8, hemoglobin of 11.9, platelet count of 63,000, pH of 7.53 on ABG, PCO2 34.7, PO2 of 75.4, CMP showing a sodium of 137, potassium of 2.8, creatinine of 0.7, calcium of 8.2, total bilirubin of 4.2, AST of 61, alkaline phosphatase of 253, ammonia levels of 52, UA showing positive nitrate, negative leuk esterase with 40-65 WBCs. She is under the hospital for management of weakness. Was found that patient has not been taking her lactulose for couple of weeks as she does not like the taste. Patient started back on lactulose after which she had 2-3 good bowel movements and her mentation improved. She worked well with physical therapy during hospitalization. She was also found to have a UTI for which she was started on IV antibiotics. Urine culture eventually grew Enterobacter. She is to continue levofloxacin for 5 more days to finish a course of antibiotics as per the culture sensitivities. For safe discharge planning options regarding SNF versus home health were discussed in detail. Patient stated she would like to go and live with her sister for some time to regain her strength and for now we will would like to hold off on home health. Discharge planning discussed in detail both with patient and her family at bedside and they were agreeable. Physical Exam Narrative: EXAM NARRATIVE: General: No acute distress, AO x3, icterus present, well hydrated HEENT: PERRLA, pupils bilaterally equal and reactive Chest: Normal vesicular breath sounds, no added sounds, equal good air entry bilaterally CVS: S1-S2 regular, no murmurs, no tachycardia, no gallops, no rubs Abdomen: Soft, nontender, no organomegaly, bowel sounds present Neuro: No focal deficits, no facial deformity, AO x3, power 5/5 in all limbs Discharge Data Data Completed and Pending: Completed Studies During Hospitalization Category Date Time Status CT abdomen pelvis w con* [id number] Rout ine Cat Scan 09/05/20 18:[address] head wo con* [id number] Stat Cat Scan 09/05/20 12:35 Completed XR chest 1V rosita ble [id number] Stat Exams 09/05/20 12:35 Completed Pending at discharge Category Date Time Status Blood Culture Sta t Lab 09/05/20 15:35 Results Drug Screen, Urin e Stat Lab 09/05/20 18:17 Ordered Legionella Antige n STAT Routine Lab 09/05/20 18:16 Ordered Labs from last 24 hours 09/07/20 09/07/20 09/07/20 10:54 06:28 06:14 WBC RBC Hgb Hct MCV MCH MCHC RDW Plt Count MPV Neut % (Auto) Lymph % (Auto) Lane % (Auto) Eos % (Auto) Baso % (Auto) Neut # (Auto) Lymph # (Auto) Lane # (Auto) Eos # (Auto) Baso # (Auto) Nucleated RBC % (a uto) Nucleated RBCs # Sodium Potassium Chloride Carbon Dioxide Anion Gap BUN Creatinine GFR Calculation Glucose POC Glucose 215 H 126 H Calculated Osmolal ity Calcium Total Bilirubin AST ALT Alkaline Phosphata se Ammonia 49 Total Protein Albumin Globulin 09/07/20 09/07/20 09/06/20 06:14 06:14 20:28 WBC 4.0 RBC 2.78 L Hgb 10.6 L Hct 30.9 L MCV 111.2 H MCH 38.1 H MCHC 34.3 RDW 16.0 H Plt Count 54 L MPV 11.5 H Neut % (Auto) 71.9 Lymph % (Auto) 14.4 Lane % (Auto) 9.6 Eos % (Auto) 2.5 Baso % (Auto) 0.8 Neut # (Auto) 2.86 Lymph # (Auto) 0.[address] # (Auto) 0.4 Eos # (Auto) 0.1 Baso # (Auto) 0.0 Nucleated RBC % (a uto) 0 Nucleated RBCs # 0.0 Sodium 135 L Potassium 4.2 Chloride 107 Carbon Dioxide 22 Anion Gap 10.2 BUN 10 Creatinine 0.7 GFR Calculation Not Reportable Glucose 120 H POC Glucose 156 H Calculated Osmolal ity 280 L Calcium 7.6 L Total Bilirubin 3.7 H AST 69 H ALT 17 Alkaline Phosphata se 204 H Ammonia Total Protein 7.3 Albumin 2.3 L Globulin 5.0 H 09/06/20 16:43 WBC RBC Hgb Hct MCV MCH MCHC RDW Plt Count MPV Neut % (Auto) Lymph % (Auto) Lane % (Auto) Eos % (Auto) Baso % (Auto) Neut # (Auto) Lymph # (Auto) Lane # (Auto) Eos # (Auto) Baso # (Auto) Nucleated RBC % (a uto) Nucleated RBCs # Sodium Potassium Chloride Carbon Dioxide Anion Gap BUN Creatinine GFR Calculation Glucose POC Glucose 178 H Calculated Osmolal ity Calcium Total Bilirubin AST ALT Alkaline Phosphata se Ammonia Total Protein Albumin Globulin Addt'l Data from Hospital Stay: Microbiology 09/05/20 13:46 Urine,Clean Catch Urine Culture - Final Enterobacter cloacae 09/05/20 18:20 Nose MRSA Culture - Final 09/05/20 15:35 Blood Blood Culture - Preliminary NEGATIVE TO DATE 09/05/20 13:35 Blood Blood Culture - Preliminary NEGATIVE TO DATE Laboratory Results WBC 4.0 10^3/uL (4.0- 10.0) 09/07/20 06:14 RBC 2.78 10^6/uL (4.1 -5.3) L 09/07/20 06:14 Hgb 10.6 g/dL (11.5-1 5.3) L 09/07/20 06:14 Hct 30.9 % (37.0-47.0 ) L 09/07/20 06:14 MCV 111.2 fL (81-99) H 09/07/20 06:14 MCH 38.1 pg (28.0-34. 0) H 09/07/20 06:14 MCHC 34.3 g/dL (30.0-3 6.0) 09/07/20 06:14 RDW 16.0 % (12.1-15.1 ) H 09/07/20 06:14 Plt Count 54 10^3/cmm (130- 400) L 09/07/20 06:14 MPV 11.5 fL (7.4-10.4 ) H 09/07/20 06:14 Neut % (Auto) 71.9 % 09/07/20 06:14 Lymph % (Auto) 14.4 % 09/07/20 06:14 Lane % (Auto) 9.6 % 09/07/20 06:14 Eos % (Auto) 2.5 % 09/07/20 06:14 Baso % (Auto) 0.8 % 09/07/20 06:14 Neut # (Auto) 2.86 10^3/uL (1.8 -7.7) 09/07/20 06:14 Lymph # (Auto) 0.6 10^3/uL (0.8- 4.8) L 09/07/20 06:14 Lane # (Auto) 0.4 10^3/uL (0.2- 0.9) 09/07/20 06:14 Eos # (Auto) 0.1 10^3/uL (0.0- 0.8) 09/07/20 06:14 Baso # (Auto) 0.0 10^3/uL (0.0- 0.1) 09/07/20 06:14 Nucleated RBC % (a uto) 0 % 09/07/20 06:14 Nucleated RBCs # 0.0 /100WBC 09/07/20 06:14 PT 21.70 SECONDS (12 .1-14.9) H 09/06/20 06:02 INR 1.84 (0.8-1.2) H 09/06/20 06:02 Specimen Type Arterial 09/05/20 12:52 Sample Site Radial, right 09/05/20 12:52 ABG pH 7.53 (7.35-7.45) H 09/05/20 12:52 ABG pCO2 34.7 mmHg (35-45) L 09/05/20 12:52 ABG pO2 75.4 mmHg (80.0-1 00.0) L 09/05/20 12:52 ABG HCO3 28.8 mmol/L (22-2 6) H 09/05/20 12:52 ABG O2 Saturation 96.7 09/05/20 12:52 ABG Base Excess 6.0 mmol/L (-2.0- 2.0) H 09/05/20 12:52 Theron Test Pos 09/05/20 12:52 A-a O2 Gradient 4.0 mmHg (5-10) L 09/05/20 12:52 Hematocrit 35.0 % (37-47) L 09/05/20 12:52 Hgb O2 Saturation 93.9 % (95-100) L 09/05/20 12:52 Carboxyhemoglobin 2.1 %THgb (0.4-20 .1) 09/05/20 12:52 Methemoglobin 0.8 % (0.4-1.5) 09/05/20 12:52 Total Hemoglobin 11.4 g/dL (12-16) L 09/05/20 12:52 Sodium 139.0 mmol/L (131 -143) 09/05/20 12:52 Potassium 2.8 mmol/L (3.5-5 .0) L 09/05/20 12:52 Glucose 164.0 mg/dL (70-1 15) H 09/05/20 12:52 Ionized Calcium 1.1 mmol/L (1.1-1 .4) 09/05/20 12:52 O2 Delivery Device Room air 09/05/20 12:52 FiO2 21.0 % 09/05/20 12:52 [employer] Instructor ID Kolero 09/05/20 12:52 Sodium 135 mmol/L (136-1 45) L 09/07/20 06:14 Potassium 4.2 mmol/L (3.5-5 .1) 09/07/20 06:14 Chloride 107 mmol/L (98-10 7) 09/07/20 06:14 Carbon Dioxide 22 mmol/L (22-29) 09/07/20 06:14 Anion Gap 10.2 (5-19) 09/07/20 06:14 BUN 10 mg/dL (8-23) 09/07/20 06:14 Creatinine 0.7 mg/dL (0.5-0. 9) 09/07/20 06:14 GFR Calculation Not Reportable 09/07/20 06:14 Glucose 120 mg/dL (65-115 ) H 09/07/20 06:14 POC Glucose 215 mg/dL (70-110 ) H 09/07/20 10:54 Estimat Average Gl ucose 88 09/06/20 06:02 Hemoglobin A1c 4.7 % (4.0-6.0) 09/06/20 06:02 Calculated Osmolal ity 280 mOsm/kg (285- 295) L 09/07/20 06:14 Calcium 7.6 mg/dL (8.5-10 .5) L 09/07/20 06:14 Phosphorus 2.0 mg/dL (2.5-4. 5) L 09/06/20 06:02 Magnesium 1.6 mg/dL (1.7-2. 3) L 09/06/20 06:02 Iron 107 ug/dL (37-145 ) 09/05/20 13:35 TIBC 176 mcg/dl 09/05/20 13:35 % Saturation 60.7 % (20-50) H 09/05/20 13:35 Unsat Iron Binding 69 ug/dL (112-347 ) L 09/05/20 13:35 Total Bilirubin 3.7 mg/dL (0.15-1 .2) H 09/07/20 06:14 AST 69 U/L (0-32) H 09/07/20 06:14 ALT 17 U/L (0-33) 09/07/20 06:14 Alkaline Phosphata se 204 IU/L (35-105) H 09/07/20 06:14 Ammonia 49 umol/L (11-51) 09/07/20 06:14 Creatine Kinase 171 U/L (26-192) 09/05/20 13:35 Total Protein 7.3 g/dL (6.6-8.7 ) 09/07/20 06:14 Albumin 2.3 g/dL (3.5-5.2 ) L 09/07/20 06:14 Globulin 5.0 g/dL (1.3-4.6 ) H 09/07/20 06:14 Triglycerides 51 mg/dL (0-150) 09/06/20 06:02 Cholesterol 94 mg/dL (0-200) 09/06/20 06:02 LDL Cholesterol, C alc 47 mg/dL (50-129) L 09/06/20 06:02 Total VLDL Cholest denae 10 mg/dL (0-30) 09/06/20 06:02 HDL Cholesterol 37 mg/dL (60-100) L 09/06/20 06:02 Cholesterol/HDL Ra ann marie 2.54 mg/dL (0.0-4 .40) 09/06/20 06:02 Lipase 58 U/L (13-60) 09/05/20 13:35 Procalcitonin 0.26 ng/mL (0-0.5 ) 09/05/20 13:35 TSH 3.46 uIU/mL (0.27 -4.20) 09/05/20 13:35 Urine Color Dark yellow (Yel low) 09/05/20 13:46 Urine Appearance Sl hazy (CLEAR) 09/05/20 13:46 Urine pH 5 (5-7) 09/05/20 13:46 Ur Specific Gravit y 1.015 (1.005-1.0 30) 09/05/20 13:46 Urine Protein Trace (Negative) 09/05/20 13:46 Urine Glucose (UA) Norm (Normal) 09/05/20 13:46 Urine Ketones 1+ (Negative) H 09/05/20 13:46 Urine Blood Neg (Negative) 09/05/20 13:46 Urine Nitrate Positive (Negati ve) H 09/05/20 13:46 Urine Bilirubin 1+ (Negative) H 09/05/20 13:46 Urine Urobilinogen 1 mg/dL (Negative ) H 09/05/20 13:46 Ur Leukocyte Maddi ase Negative (Negati ve) 09/05/20 13:46 Urine RBC 0-4 /hpf (0-2) H 09/05/20 13:46 Urine WBC 40-55 /hpf (0-5) H 09/05/20 13:46 Ur Squamous Epith Cells 0-4 /hpf (0-5) H 09/05/20 13:46 Amorphous Sediment Not Reportable 09/05/20 13:46 Urine Bacteria 3+ /hpf (NONE) H 09/05/20 13:46 Urine Mucus Trace /hpf 09/05/20 13:46 Hepatitis A IgM Ab Non-reactive (No nreactive) 09/05/20 13:35 Hep Bs Antigen Non-reactive (No nreactive) 09/05/20 13:35 Hep Bs Antibody 3.5 (11.5-1000) L 09/05/20 13:35 Hep B Core Total A b Non-reactive (No nreactive) 09/05/20 13:35 Hepatitis C Antibo dy Non-reactive (No nreactive) 09/05/20 13:35 Impressions Chest X-Ray 09/05/20 12:35 Impression: 1. Bilateral patchy pulmonary opacities which may represent acute and/or chronic pneumonia. 2. Small right pleural effusion. 3. Atherosclerosis. Head CT 09/05/20 12:35 Impression: Negative CT scan of the head Abdomen/Pelvis CT 09/05/20 18:17 IMPRESSION: 1. Small right pleural effusion. Associated segmental right basilar atelectasis. 2. Cirrhotic liver with splenic varices and splenomegaly. 3. A subtle 1.5 cm hypodensity in the left hepatic lobe is indeterminate on this exam. It can be fully investigated with MRI or multiphase contrast-enhanced CT. COMMENTS: Consistent with the [place] [employer]'s Incidental Findings Committee white paper (J Am Sanjana Radiol 2018): Any incidental renal lesion less than 1 cm or classified as too small to characterize, or any incidental cystic renal lesion characterized as simple-appearing, is likely benign. No follow-up imaging is recommended for these lesions per consensus recommendations based on imaging criteria. Radiation Dose CTDIVOL = (mGy): DLP = 1796.58 (mGy-cm) Vitals: Last Vital Signs Temp 98.3 F 09/07/20 11:39 Pulse 90 09/07/20 11:39 Resp 18 09/07/20 11:39 BP 144/74 09/07/20 11:39 Pulse Ox 92 09/07/20 11:39 Discharge Plan Discharge Patient Disposition: Home Condition: Stable Prescriptions: New levofloxacin 500 mg tablet 500 mg PO DAILY 3 Days Qty: 3 RF: 0 Continued sulfasalazine 500 mg tablet 500 mg PO BID RF: 0 promethazine 12.5 mg Tablet 12.5 mg PO Q6H PRN (Reason: Nausea) RF: 0 ondansetron HCl [Zofran] 4 mg Tablet 4 mg PO Q8H PRN (Reason: Nausea) RF: 0 spironolactone 25 mg Tablet 100 mg PO DAILY RF: 0 pantoprazole 40 mg Tablet,Delayed Release (Dr/Ec) 40 mg PO BID RF: 0 lactulose 20 gram/30 mL solution 20 g PO BID PRN (Reason: Constipation) RF: 0 Changed furosemide [Lasix] 40 mg Tablet 20 mg PO DAILY Qty: 0 RF: 0 Discharge Orders: Discharge Order (Routine); Ordered 09/07/20 Ordered By: Watson Trivedi Referrals: Dmitry Hogan [Primary Care Provider] - 7-10 days Discharge Diet: Regular Discharge Activity: Resume usual activity Patient Instructions: Opioid Safety Activity Restrictions/Additional Instructions: Take levofloxacin for 3 more days to finish a 5-day course of antibiotics for UTI. Please take lactulose as discussed in detail. You should take lactulose 2-3 times a day as needed for at least 2-3 good bowel movements a day. Discharge Attestations Time Spent in Discharge Care*: greater than 30 min Specific Discharge Activities: educating patient, educating and/or supporting family/caregiver, discussing with business case analyst/social workers/dc planners, documenting/other paperwork and evaluating patient/reviewing data Status at Discharge: Cognitive status at discharge: cognitively intact, Behavioral status at discharge: cooperative, Functional status at discharge: independent ambulation Overall status at discharge: patient is back to baseline Quality Metrics Clinical Quality Measures During this hospital stay, did patient experience: None Coding Level of Care Code Acute Chg FW DC note Diagnoses Metabolic encephalopathy G93.41 Liver cirrhosis K74.60; R18.8 Hepatic cirrhosis type: unspecified hepatic cirrhosis Ascites presence: with ascites UTI (urinary tract infection) N39.0 Diastolic heart failure I50.32 Heart failure chronicity: chronic HTN (hypertension) I10 Hypertension type: essential hypertension Diabetes mellitus E11.9 Hypokalemia E87.6
--- NOTE | 2020-09-07 14:10 | PC.NURSE ---
Discharge instructions explained to patient. Patient and son verbalized understanding. Discharge medications sent to the pharmacy. Patient wheeled out to private vehicle.
== END 2020-09-07 14:00 | disposition home or self-care (01) | DRG 71 ==
LOC: ER 13:47 → MEDSURG 09-06 10:52
PROVIDERS: Admitting Provider Family Medicine; Emergency Provider Family Medicine; PCP Physician Assistant Medical; Visit Provider Student in an Organized Health Care Education/Training Program
DX: G93.41 Metabolic encephalopathy (principal); N39.0 Urinary tract infection, site not specified; R18.8 Other ascites; I50.32 Chronic diastolic (congestive) heart failure; E87.6 Hypokalemia; K74.60 Unspecified cirrhosis of liver; E11.9 Type 2 diabetes mellitus without complications; I11.0 Hypertensive heart disease with heart failure; E78.5 Hyperlipidemia, unspecified; Z86.19 Personal history of other infectious and parasitic diseases; Z91.14 Patient's other noncompliance with medication regimen
CPT/HCPCS: 36415; 36416; 36600; 70450; 71045; 74177; 80051; 80053; 80061; 81001; 82140; 82330; 82550; 82805; 82962; 83036; 83540; 83550; 83690; 83735; 84100; 84145; 84443; 85025; 85610; 86705; 86706; 86709; 86803; 87040; 87077; 87086; 87186; 87340; 87641; 94640; 94664; 96365; 96367; 96372; 96375; 97161; 97530; 99285; G0378; J0696; J1644; J1815; J2405; J3480; J3490; Q9967; S0030

== ENCOUNTER 2020-09-19 15:15 | Outpatient (CLI) | payer MEDICARE, OTHER, SELFPAY ==
--- NOTE | 2020-09-19 15:30 | USCV_ITS ---
Karol Hickey Age: 74 Gender: F : 1945 Exam Date: 09/19/2020 15:53 Ordering Phys: Dmitry Hogan PA-C XX Technologist: Nay Ho [place] [facility] [place] Indication: LLE SWELLING HISTORY: Lower extremity swelling. PROCEDURES: Venous duplex imaging was performed in only the left lower extremity. The following venous structures were evaluated: common femoral vein, profunda vein, proximal portion of the greater saphenous vein, superficial femoral vein, and the popliteal vein. In addition, the posterior tibial and peroneal trunk were evaluated. Serial compression, augmentation maneuvers, and spectral Doppler flow evaluation were performed. FINDINGS: Normal 2-D Doppler and augmentation and compressibility throughout the lower extremity venous structures. Additional imaging through the proximal calf veins also reveals no thrombus. Limited evaluation of the greater saphenous vein is patent with no thrombus. CONCLUSIONS No DVT left lower extremity. Dr. Tala Jolly DO (Electronically Signed) Final Date: 22 Sep 2020 08:24 S
== END 2020-09-19 15:16 | disposition home or self-care (01) ==
LOC: RAD 15:21
PROVIDERS: PCP Physician Assistant Medical; Visit Provider Physician Assistant Medical
DX: M79.89 Other specified soft tissue disorders (principal)
CPT/HCPCS: 93971